=== PATIENT | female | born 1960 | race Caucasian/White ===

== ENCOUNTER → 2020-01-31 08:41 | Outpatient (CLI) | payer OTHER, SELFPAY ==
--- NOTE | 2020-01-31 08:45 | BI_ITS ---
MAMMOGRAPHY - BILATERAL SCREENING REASON FOR EXAM: Female, 59 years old. Routine annual screening examination. PERTINENT HISTORY: Sister with breast cancer. Occasional left nipple itchiness. TECHNIQUE: Digital bilateral breast wendy (3D mammographic acquisition) in the CC and MLO projections. 2-D mediolateral oblique (MLO) and craniocaudad (CC) views of both breasts were obtained. CAD: Full Field Digital Mammography with Computer Added Detection was performed. COMPARISON: Comparison is made with prior outside examination dated November 03, 2011. FINDINGS: Breast Composition: There are scattered areas of fibroglandular density. There are no dominant masses or suspicious calcifications. Stable benign-appearing bilateral axillary lymph nodes. No other significant abnormalities are identified. There has been no significant change since the prior study. BI/SCREEN MAMM (CAD) W/WENDY BILAT IMPRESSION: Stable bilateral screening mammogram. Yearly follow-up mammogram recommended. (A) ASSESSMENT CATEGORY: BIRADS Category 2: Benign. A letter regarding these results will be sent to the patient by the facility within 30 days. Approximately 10% of breast cancers are not detected by mammography. A normal mammogram should not delay biopsy of a clinically suspicious abnormality. [id number] Electronically Signed: Brad Fonseca, at 8:22 EDT , Service support ,
== END ==
PROVIDERS: PCP Family Medicine; Referring Provider Family Medicine; Visit Provider Family Medicine
DX: Z12.31 Encounter for screening mammogram for malignant neoplasm of breast (principal)
CPT/HCPCS: 77063; 77067

== ENCOUNTER → 2020-03-26 17:16 | Outpatient (CLI) | payer OTHER, SELFPAY ==
[2020-03-26 14:54] VITALS: BMI 39.0
[2020-04-03 15:37] LABS: HPV APTIMA, High Risk Negative (Negative)
== END ==
PROVIDERS: PCP Family Medicine; Referring Provider Obstetrics & Gynecology; Visit Provider Obstetrics & Gynecology
DX: Z12.4 Encounter for screening for malignant neoplasm of cervix (principal)
CPT/HCPCS: 87624; 88175; G0145

== ENCOUNTER → 2020-06-04 16:56 | Outpatient (CLI) | payer OTHER, SELFPAY ==
[2020-03-26 14:54] VITALS: BMI 39.0
[2020-06-04 17:30] LABS: Absolute Lymphocyte Count 2.13 X10^3/uL (0.83-4.51); Absolute Neutrophil Count 5.8 X10^3/uL (2.0-7.7); Basophil# 0.04 X10^3/uL; Basophil% 0.5 % (0-1); Eosinophil# 0.08 X10^3/uL; Eosinophils% 0.9 % (0-5); Hematocrit 40.7 % (37-47); Lymphocyte # 2.13 X10^3/ul (4.0); Lymphocyte % 24.7 % (19-41); Mean Corp Hgb Conc 29.5 g/dL (32-36); Mean Corpuscular Hgb 27.7 pg (27.0-32.0); Mean Platelet Vol. 9.1 fl (6.2-12.0); Monocyte# 0.58 X10^3/uL; Monocyte% 6.7 % (0-10); NRBC Flagged by Analyzer 0 % (0-5); Neutrophil # 5.78 X10^3/uL (2.7-7.7); Platelet Count 302 K/mm3 (150-450); RBC Distribution Width CV 12.8 % (11.6-14.6); RBC Distribution Width SD 44.2 fl (35.1-43.9); Red Blood Count 4.33 M/mm3 (4.2-5.4); White Blood Count 8.6 K/mm3 (4.4-11.0)
[2020-06-04 18:03] LABS: AST(SGOT) 14 U/L (15-37); Alanine Aminotransfer ALT/SGPT 23 U/L (13-56); Albumin, Serum 3.7 g/dL (3.2-5.0); Alkaline Phosphatase 78 U/L (45-117); Anion Gap 8 (5-15); BUN 13 mg/dL (7-18); BUN/Creat Ratio 14.1 RATIO (10-20); Calcium,Total 9.4 mg/dL (8.5-10.1); Chloride 107 mmol/L (98-107); Cholesterol 213 mg/dL (200); Creatinine, Serum 0.92 mg/dL (0.55-1.02); EST Glomerular Filtration Rate 66 mL/min (>60); Est Glom Filt Rate - Afr Amer 80 mL/min (>60); Globulin 3.8 g/dL (2.2-4.2); Glucose 126 mg/dL (74-106); High Density Lipoprotein 65 mg/dL; Potassium 4.2 mmol/L (3.5-5.1); Protein, Total 7.5 g/dL (6.4-8.2); Sodium Level 143 mmol/L (136-145); Triglycerides 194 mg/dL; Very Low Density Lipoprotein 39 mg/dL (5-40)
[2020-06-04 18:17] LABS: Vitamin B12 213 pg/mL (211-911)
[2020-06-04 18:26] LABS: Microalbumin:Creatinine Ratio 43.3 mg/g CRE (<30 mg/g CRE)
[2020-06-04 19:04] LABS: Hemoglobin A1c 6.8 % (3.8-5.6)
== END ==
PROVIDERS: PCP Family Medicine; Visit Provider Family Medicine
DX: E11.9 Type 2 diabetes mellitus without complications (principal); R25.2 Cramp and spasm; E55.9 Vitamin D deficiency, unspecified; E83.42 Hypomagnesemia; E78.5 Hyperlipidemia, unspecified
CPT/HCPCS: 36415; 80053; 80061; 82043; 82570; 82607; 83036; 83735; 85025

== ENCOUNTER 2020-11-22 09:18 | Outpatient (RCR) | payer OTHER, SELFPAY ==
[2020-03-26 14:54] VITALS: BMI 39.0
[2020-11-22] MEDS: COVID-19 VACC, MRNA(PFIZER)/PF 30 MCG/0.3 ML SYRINGE IM (13:58)
[2020-12-13] MEDS: COVID-19 VACC, MRNA(PFIZER)/PF 30 MCG/0.3 ML SYRINGE IM (13:40)
== END 2021-02-18 23:59 ==
LOC: IMMUN 09:18
PROVIDERS: PCP Family Medicine; Visit Provider Family Medicine
DX: Z23 Encounter for immunization (principal)
CPT/HCPCS: 0001A; 0002A; 91300

== ENCOUNTER → 2021-06-03 | Outpatient (CLI) | payer OTHER, SELFPAY | END | disposition home or self-care (01) | LOC: LABSPEC 06-04 08:33 | PROVIDERS: PCP Family Medicine; Referring Provider Physician Assistant Surgical; Visit Provider Physician Assistant Surgical | DX: J02.9 Acute pharyngitis, unspecified (principal) | CPT/HCPCS: 87635; U0005; U0003 ==

== ENCOUNTER 2021-06-06 15:58 | Outpatient (CLI) | payer OTHER, SELFPAY ==
[2021-06-06 16:11] VITALS: BP 133/70; PULSE 60; RESP 16; TEMP 36.9; O2SAT 100; BMI 38.7
[2021-06-06] MEDS: 0.9% Saline Lock 10 ML Syringe IV (16:15)
[2021-06-06 16:50] VITALS: BP 111/78; PULSE 61; RESP 16; TEMP 37; O2SAT 97
[2021-06-06 17:50] VITALS: BP 114/70; PULSE 68; RESP 16; TEMP 37.1; O2SAT 97
== END 2021-06-06 17:50 | disposition home or self-care (01) ==
LOC: ICUOUT 15:58 → MS3 15:59
PROVIDERS: PCP Family Medicine; Referring Provider Nurse Practitioner Adult Health; Visit Provider Nurse Practitioner Adult Health
DX: Z23 Encounter for immunization (principal); U07.1 COVID-19
CPT/HCPCS: J7050; M0243; A4216; Q0244

== ENCOUNTER 2021-10-10 11:13 | Outpatient (CLI) | payer OTHER, SELFPAY ==
[2021-10-10 11:41] LABS: Absolute Lymphocyte Count 2.44 X10^3/uL (0.83-4.51); Absolute Neutrophil Count 5.5 X10^3/uL (2.0-7.7); Basophil# 0.04 X10^3/uL; Basophil% 0.4 % (0-1); Eosinophil# 0.18 X10^3/uL; Hematocrit 38.7 % (37-47); Hemoglobin 12.1 g/dL (12.0-15.0); Lymphocyte # 2.44 X10^3/ul (0.83-4.51); Lymphocyte % 27.4 % (19-41); Mean Corp Hgb Conc 31.3 g/dL (32-36); Mean Corpuscular Hgb 28.1 pg (27.0-32.0); Mean Corpuscular Volume 89.8 fL (81-99); Monocyte# 0.67 X10^3/uL; Monocyte% 7.5 % (0-10); NRBC Flagged by Analyzer 0 % (0-5); Neutrophil # 5.53 X10^3/uL (2.7-7.7); Neutrophil % 62.4 % (47-70); Platelet Count 290 K/mm3 (150-450); RBC Distribution Width SD 42.8 fl (35.1-43.9); Red Blood Count 4.31 M/mm3 (4.2-5.4); White Blood Count 8.9 K/mm3 (4.4-11.0)
[2021-10-10 12:17] LABS: Vitamin B12 507 pg/mL (211-911); Vitamin D,25 Hydroxy 47.9 ng/mL
[2021-10-10 12:25] LABS: ALB/GLOB Ratio 0.9 RATIO (0.9-2.4); AST(SGOT) 13 U/L (15-37); Alanine Aminotransfer ALT/SGPT 20 U/L (13-56); Albumin, Serum 3.6 g/dL (3.2-5.0); Alkaline Phosphatase 76 U/L (45-117); Anion Gap 6 (5-15); BUN 14 mg/dL (7-18); BUN/Creat Ratio 14.7 RATIO (10-20); CRP 9.89 mg/L (0.0-3.0); Chloride 105 mmol/L (98-107); Cholesterol 208 mg/dL (200); Creatinine, Serum 0.95 mg/dL (0.55-1.02); EST Glomerular Filtration Rate 64 mL/min (>60); Est Glom Filt Rate - Afr Amer 77 mL/min (>60); Free T3 2.6 pg/mL (2.18-3.98); Globulin 4.1 g/dL (2.2-4.2); Glucose 179 mg/dL (74-106); High Density Lipoprotein 72 mg/dL; Iron 57 ug/dL (50-170); Protein, Total 7.7 g/dL (6.4-8.2); Rheumatoid Factor < 10.0 IU/mL (<15); Sodium Level 139 mmol/L (136-145); T4 Free Direct 1.08 ng/dL (0.76-1.46); Thyroid Stim Hormone (TSH) 1.94 uIU/mL (0.358-3.74); Triglycerides 132 mg/dL; Very Low Density Lipoprotein 26 mg/dL (5-40)
[2021-10-10 12:26] LABS: Erythrocyte Sedimentation Rate 22 mm/hr (0-30)
[2021-10-14 09:40] LABS: CCP IgG Antibodies 29 units (0-19)
== END 2021-10-10 23:59 | disposition short-term general hospital (02) ==
PROVIDERS: PCP Family Medicine; Visit Provider Family Medicine
DX: E03.9 Hypothyroidism, unspecified (principal); E11.8 Type 2 diabetes mellitus with unspecified complications; E78.5 Hyperlipidemia, unspecified; M79.10 Myalgia, unspecified site; M25.50 Pain in unspecified joint; G25.81 Restless legs syndrome; Z51.81 Encounter for therapeutic drug level monitoring
CPT/HCPCS: 36415; 80053; 80061; 82306; 82607; 83540; 84439; 84443; 84481; 85025; 85652; 86140; 86200; 86431

== ENCOUNTER → 2022-01-29 | Outpatient (CLI) | payer OTHER, SELFPAY ==
[2022-01-29 17:36] LABS: Erythrocyte Sedimentation Rate 28 mm/hr (0-30)
[2022-01-29 18:10] LABS: ALB/GLOB Ratio 0.9 RATIO (0.9-2.4); AST(SGOT) 10 U/L (15-37); Alanine Aminotransfer ALT/SGPT 23 U/L (13-56); Albumin, Serum 3.5 g/dL (3.2-5.0); Alkaline Phosphatase 79 U/L (45-117); Anion Gap 7 (5-15); BUN 13 mg/dL (7-18); BUN/Creat Ratio 16.8 RATIO (10-20); Calcium,Total 9.5 mg/dL (8.5-10.1); Chloride 107 mmol/L (98-107); Creatinine, Serum 0.77 mg/dL (0.55-1.02); EST Glomerular Filtration Rate 81 mL/min (>60); Est Glom Filt Rate - Afr Amer 98 mL/min (>60); Globulin 3.7 g/dL (2.2-4.2); Glucose 138 mg/dL (74-106); Potassium 4.1 mmol/L (3.5-5.1); Protein, Total 7.2 g/dL (6.4-8.2); Sodium Level 141 mmol/L (136-145)
[2022-01-31 20:00] LABS: ANTINUCLEAR ANTIBODIES DIRECT Negative (Negative)
[2022-02-10 14:08] LABS: Lyme IgG P18 Ab Absent (.); Lyme IgG P23 Ab Absent (.); Lyme IgG P28 Ab Absent (.); Lyme IgG P30 Ab Absent (.); Lyme IgG P39 Ab Absent (.); Lyme IgG P41 Ab Absent (.); Lyme IgG P45 Ab Absent (.); Lyme IgG P58 Ab Present (.); Lyme IgG P66 Ab Absent (.); Lyme IgG P93 Ab Absent (.); Lyme IgM P23 Ab Absent (.); Lyme IgM P39 Ab Absent (.); Lyme IgM P41 Ab Absent (.)
[2022-02-11 11:25] LABS: CCP IgG Antibodies 27 units (0-19); Lyme IgG WB Interpretation Negative (.); Lyme IgM WB Interpretation Negative (.)
== END | disposition home or self-care (01) ==
LOC: LAB 16:17
PROVIDERS: PCP Family Medicine; Visit Provider Family Medicine
DX: E11.9 Type 2 diabetes mellitus without complications (principal); M25.50 Pain in unspecified joint; Z51.81 Encounter for therapeutic drug level monitoring
CPT/HCPCS: 36415; 80053; 85652; 86038; 86140; 86200; 86225; 86235; 86617

== ENCOUNTER → 2022-09-08 | Outpatient (CLI) | payer OTHER, SELFPAY ==
--- NOTE | 2022-09-08 16:45 | MRI_ITS ---
INDICATION: Cervical dystonia EXAMINATION: MRI - MR Spine Cervical W/O Contrast TECHNIQUE: Multiplanar and multisequence MR images of the cervical spine were performed. IV Contrast Dosage and Agent: None. COMPARISON: None. FINDINGS: VERTEBRAE: Normal vertebral bodies and posterior elements. VERTEBRAL ALIGNMENT: Normal, including the craniocervical junction and cervicothoracic junction. 2 mm C2-3 retrolisthesis. 3 mm C4-5 anterolisthesis. Reversal of the typical cervical lordosis centered on C5. CERVICAL SPINAL CORD: Unremarkable in signal and morphology. C2/C3: Disc bulge and uncovertebral hypertrophy. Moderate left neural foraminal stenosis. No spinal canal stenosis C3/C4: Disc bulge. Mild bilateral neural foraminal stenosis. No spinal canal stenosis C4/C5: Disc bulge with mass effect on the ventral cord. Moderate right and mild left neural foraminal stenosis. C5/C6: Disc bulge and uncovertebral hypertrophy. Ligamentum flavum redundancy. Mild spinal cord compression. Severe bilateral neural foraminal stenosis. C6/C7: Disc bulge. Mild left neural foraminal stenosis. No spinal canal stenosis. C7/T1: Normal disc height and morphology. Normal spinal canal and neuroforamina. NECK SOFT TISSUES: No prevertebral soft tissue swelling. There is no cervical adenopathy. MRI/Spine Cervical (Routine) IMPRESSION: 1. Spinal canal stenosis with mild cord compression at C5-6. No finding of abnormal cord signal. 2. Multilevel neural foraminal stenosis, severe bilaterally at C5-6, moderate on the left at C2-3, and moderate on the right at C4-5. Electronically Signed: Bryan Rausch MD at 19:17 EST ,
--- NOTE | 2022-09-08 17:24 | MRI_ITS ---
INDICATION: Spasmodic torticollis/dystonia, headaches cerebrovascular disease vs. Demyelinating disease EXAMINATION: MRI - MR Brain WO/W Contrast TECHNIQUE: Multiplanar and multisequence MR images of the brain were obtained without and with gadolinium. IV Contrast Dosage and Agent: 20 cc Clariscan COMPARISON: 10/31/2014 FINDINGS: BRAIN PARENCHYMA: Increase in small FLAIR hyperintensities scattered throughout the centrum semiovale. Increased FLAIR hyperintense lesions in the midbrain and ronaldo. No MRI evidence of hemorrhage. No evidence of acute infarct. No intracranial mass or mass effect. There is preservation of the ham/white matter interface. Normal sella turcica, pituitary gland, infundibular stalk, optic chiasm and hypothalamus. Posterior fossa structures are unremarkable. No abnormal enhancement. INTERNAL AUDITORY CANALS: The internal auditory canals are well visualized and patent. No mass identified. CSF SPACES: Appropriate for age. No hydrocephalus. Basal cisterns are patent. VASCULAR SYSTEM: Normal flow voids in the major intracranial circulation. CALVARIUM, SKULL BASE, PARANASAL SINUSES AND MASTOID AIR CELLS: Clear. No expansile changes. ORBITS: Both globes, extraocular muscles, optic nerves and retrobulbar fat appear unremarkable. MRI/Brain W/WO Contrast IMPRESSION: Increased small FLAIR hyperintense lesions in the centrum semiovale and brainstem, which may be related to history of headaches. Demyelination is less likely. No other acute abnormal finding. Electronically Signed: Bryan Rausch MD at 19:06 EST ,
== END | disposition home or self-care (01) ==
LOC: MRI 16:20
PROVIDERS: PCP Family Medicine; Referring Provider Psychiatry & Neurology Neurology; Visit Provider Psychiatry & Neurology Neurology
DX: G24.3 Spasmodic torticollis (principal); G95.20 Unspecified cord compression; M43.12 Spondylolisthesis, cervical region; I67.9 Cerebrovascular disease, unspecified
CPT/HCPCS: 70553; 72141; A9575

== ENCOUNTER → 2022-09-11 | Outpatient (CLI) | payer OTHER, SELFPAY ==
[2022-09-11 10:20] LABS: Hematocrit 36.9 % (37-47); Hemoglobin 11.2 g/dL (12.0-15.0); Mean Corp Hgb Conc 30.4 g/dL (32-36); Mean Corpuscular Hgb 27.1 pg (27.0-32.0); Mean Corpuscular Volume 89.3 fL (81-99); Mean Platelet Vol. 9.3 fl (6.2-12.0); Platelet Count 319 K/mm3 (150-450); RBC Distribution Width CV 13.2 % (11.6-14.6); RBC Distribution Width SD 42.9 fl (35.1-43.9); Red Blood Count 4.13 M/mm3 (4.2-5.4); White Blood Count 9.3 K/mm3 (4.4-11.0)
[2022-09-11 10:48] LABS: Vitamin B12 277 pg/mL (211-911)
[2022-09-11 11:07] LABS: ALB/GLOB Ratio 0.9 RATIO (0.9-2.4); AST(SGOT) 13 U/L (15-37); Alanine Aminotransfer ALT/SGPT 23 U/L (13-56); Albumin, Serum 3.5 g/dL (3.2-5.0); Alkaline Phosphatase 88 U/L (45-117); Anion Gap 6 (5-15); BUN 15 mg/dL (7-18); BUN/Creat Ratio 19.5 RATIO (10-20); Calcium,Total 9.1 mg/dL (8.5-10.1); Chloride 106 mmol/L (98-107); Creatinine, Serum 0.77 mg/dL (0.55-1.02); EST Glomerular Filtration Rate 81 mL/min (>60); Est Glom Filt Rate - Afr Amer 98 mL/min (>60); Globulin 3.7 g/dL (2.2-4.2); Glucose 194 mg/dL (74-106); Potassium 4.3 mmol/L (3.5-5.1); Protein, Total 7.2 g/dL (6.4-8.2); Sodium Level 138 mmol/L (136-145); Thyroid Stim Hormone (TSH) 1.57 uIU/mL (0.358-3.74)
[2022-09-11 11:18] LABS: Erythrocyte Sedimentation Rate 36 mm/hr (0-30)
[2022-09-15 16:32] LABS: ANTINUCLEAR ANTIBODIES DIRECT Negative (Negative)
[2022-09-18 08:09] LABS: Complement C3 171 mg/dL (82-167); Dilute Prothrombin Time (dPT) 35.8 sec (0.0-47.6); Dilute Russell Viper Venom 39.8 sec (0.0-47.0); Free Kappa Light Chains 31.7 mg/L (3.3-19.4); Free Lambda Light Chains 17.9 mg/L (5.7-26.3); Protein C Antigen 123 % (60-150); Protein S, Free 129 % (61-136); Thrombin Time 16.2 sec (0.0-23.0); Vitamin B1, Thiamine 79.9 nmol/L (66.5-200.0); dPT Confirm Ratio 1.15 Ratio (0.00-1.34)
[2022-09-18 18:18] LABS: Anti-Cardiolipin Ab, IgA, Qn < 9 APL U/mL (0-11); Anti-Cardiolipin Ab, IgG, Qn < 9 GPL U/mL (0-14); Anti-Cardiolipin Ab, IgM, Qn < 9 MPL U/mL (0-12); Anti-Thrombin 3 AG, Immunol 95 % (72-124); Antithrombin 3 Function 124 % (75-135); Complement CH50 > 60 U/mL (>41); Interpretation Comment: (.); Protein C, Functional 168 % (73-180); Protein S, Funtional 87 % (63-140); Protein S, Total 118 % (60-150)
== END | disposition home or self-care (01) ==
PROVIDERS: PCP Family Medicine; Referring Provider Psychiatry & Neurology Neurology; Visit Provider Psychiatry & Neurology Neurology
DX: I67.9 Cerebrovascular disease, unspecified (principal); G62.9 Polyneuropathy, unspecified
CPT/HCPCS: 36415; 80053; 81240; 81241; 82607; 82746; 83883; 84425; 84443; 85027; 85300; 85301; 85302; 85303; 85305; 85306; 85652; 86038; 86147; 86160; 86162; 86225; 86235

== ENCOUNTER → 2022-11-30 | Outpatient (CLI) | payer OTHER, SELFPAY ==
[2022-12-03 13:08] LABS: Albumin 3.7 g/dL (2.9-4.4); Alpha-1-Globulins 0.3 g/dL (0.0-0.4); Alpha-2-Globulins 0.9 g/dL (0.4-1.0); Complement C3 186 mg/dL (82-167); Gamma Globulin 0.9 g/dL (0.4-1.8); Immunoglobulin A 331 mg/dL (87-352); Immunoglobulin G 940 mg/dL (586-1602); Immunoglobulin M 45 mg/dL (26-217)
== END | disposition home or self-care (01) ==
LOC: MTLAB 12:41
PROVIDERS: PCP Family Medicine; Referring Provider Psychiatry & Neurology Neurology; Visit Provider Psychiatry & Neurology Neurology
DX: I67.9 Cerebrovascular disease, unspecified (principal); G62.9 Polyneuropathy, unspecified
CPT/HCPCS: 36415; 82784; 84165; 86160; 86334; 86335

== ENCOUNTER 2022-12-16 10:30 | Outpatient (RCR) | payer OTHER, SELFPAY ==
--- NOTE | 2022-12-10 14:36 | HP.PTEVAL_ITS ---
Patient's Visit Information ASHLEY MANCUSO is a 62 year old F referred to Physical Therapy by Dr. Crow Colvin MD with a diagnosis of Dystonia and Balance. Date of Evaluation: 12/10/22 Physical Therapist: Annia Catalan DPT - Visit Plan Frequency: 1x/Week Duration: 4 Weeks Plan: Balance, Dystonia of her Cervical Spine. HEP Given IE: bring head to midline, postural correction and SLS - Subjective Patient reports that the neurologist wants her to have a balance assessment and an assessment for her neck. She was diagnosed in 2011 it started in 2010- Dystonia and has progressively gotten worse- she was told its sitting at a 45 degree angle. She feels that its getting better- she takes Baclofen 3x a day. She has limited mobility to the right. Worst: 4/10 Agg: over heating (anxiety issue), stress (husbands driving). Weather related and sensory related. Eases: laying down or taking Tylenol. Best: 0/10 she doesn't think about it. Pain is located in the right side in the suboccipitals and the right side. Radiates to the top of the shoulder. Has always had numbness in the right hand- comes and goes dependent on position- she also has some numbness on the right side of her face and chin. No GUTIERREZ, blurred vision. Does report dizziness with change in position- not spinning. Right hand dominate. As her neck has gone more to the side she feels her balance has diminished. She lists to the left. Dr. Colvin had her do balance stuff and she didnt do very well so he sent her to see PT. She has not had any falls. No cane or walker. She is more sedentary- but she is up and about a lot due to restless leg. She feels the most comfortable with her right arm elevated. She has had recent x-rays and MRI's. She has three bulging discs. 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 Sleep: no issues- starts on her side and ends up on her back. - Objective Posture: FH, patient has dystonia with SB to the right- RS- can correct to good scapular retraction and face forwards for approx 2 sec with chin level then reverts back to previous posture. ROM: Cervical: Flexion and Extension: WNL, Rotation Left: WNL, Rot Right: 20 degrees from neutral, SB to the right: WNL, SB to the Left neutral, Shoulder/Elbow/hand/: WNL. Strength: Scap: poor, Core: poor, Shoulder: 4/5, Elbow: 4+/5, Core: poor. Balance: see FGA SLS: Left: 13 Right 11 sec Tandem Left 8 sec Right 10 sec - Balance/Special Test Scores Functional Gait Assessment Score: 19 % Disability: 36.6700 Oswestry Neck Score: 18 - Goals Goal 1:: Patient will be I with HEP and progression Goal Time Frame: 4-6 Weeks Goal 2:: Patient will improve her FGA by 5 points Goal Time Frame: 4-6 Weeks Goal 3:: Patient will report 80% improvement Goal Time Frame: 4-6 Weeks Goal 4:: Patient will maintain proper posture t/o tx session to demo increased core s/s Goal Time Frame: 4-6 Weeks - Rehabilitation Potential Physical Therapy Diagnosis: Patient presents with hypomobility- she has decreased scapular, core strength/stabilization, cervical ROM, proprioception and muscular endurance leading to poor posture, decreased balance and difficulty with ADL's. - Anticipated Interventions Patient/Client Instruction: Educate patient on: Benefits of Fitness Program Therapeutic Exercise to Include: Strength training, Endurance training, Balance training, Coordination, Agility training, Body mechanics, Postural training, Flexibilty training, Gait and locomotor training, Neuromotor development, Passive ROM, Active ROM, Dynamic Lumbar Stabilization, Scapular Strength/Stabilization Manual Therapy Techniques to Include: Functional dry needling, Soft tissue mobilization Functional electric stimulation: Yes TENS: Yes Other electric stimulation: Yes Cryotherapy (ice pack, ice massage): Yes Thermo therapy (hot pack): Yes Ultrasound (thermal/non thermal): Yes Thank you for the opportunity to evaluate your patient. For Medicare and Medicare HMO plans, please review the plan of care and approve it. It will need to be FAXED BACK to us at [phone] for Medicare purposes. For Medicare only, by signing this I certify the plan of care. Please let me know if there are questions or concerns regarding this plan of care. Physician Signature: Date:
--- NOTE | 2023-03-29 13:11 | HP.PT.NRP ---
Patient Information Patient Information: ASHLEY MANCUSO was seen in my office for initial evaluation on 12/10/22. The following Plan of Care was established for this patient: POC Established Initial Frequency: 1x/Week Initial Duration: 4 Weeks Anticipated Interventions Patient/Client Instruction: Educate patient on: Benefits of Fitness Program Therapeutic Exercise to Include: Strength training, Endurance training, Balance training, Coordination, Agility training, Body mechanics, Postural training, Flexibilty training, Gait and locomotor training, Neuromotor development, Passive ROM, Active ROM, Dynamic Lumbar Stabilization and Scapular Strength/Stabilization Manual Therapy Techniques to Include: Functional dry needling and Soft tissue mobilization Functional electric stimulation: Yes TENS: Yes Other electric stimulation: Yes Cryotherapy (ice pack, ice massage): Yes Thermo therapy (hot pack): Yes Ultrasound (thermal/non thermal): Yes Last Seen Last Seen: This patient was last seen in our office . Pertinent comments regarding their Physical therapy will appear below: Patient has not attended PT in over 8 weeks- appropriate to be d/c and return to MD for further evaluation PRN. At this point I will be discontinuing this patient from physical therapy. I would be happy to see this patient again in the future if found appropriate by the physician. Thank you! Annia Catalan, SILVANAT Balance/Gait/Functional tests Balance/Special Test Scores Functional Gait Assessment Score: 19 % Disability: 36.6700 Oswestry Neck Score: 18
== END 2022-12-16 19:00 | disposition home or self-care (01) ==
LOC: PT 10:30
PROVIDERS: PCP Family Medicine; Referring Provider Psychiatry & Neurology Neurology; Visit Provider Psychiatry & Neurology Neurology
DX: G62.9 Polyneuropathy, unspecified (principal); I67.9 Cerebrovascular disease, unspecified; M48.02 Spinal stenosis, cervical region; G24.3 Spasmodic torticollis; M54.2 Cervicalgia
CPT/HCPCS: 97110; 97162

== ENCOUNTER → 2023-01-27 | Outpatient (CLI) | payer OTHER, SELFPAY ==
--- NOTE | 2023-01-27 14:21 | NEURO_ITS ---
NCS and/or EMG Patient Report Ordering Doctor: Crow Colvin DATE OF SERVICE: 01/27/23 Ana María presents for electrodiagnostic testing of the lower limbs. She reports frequent cramping in the legs. She does report her feet will occasionally fall asleep. Electrodiagnostic findings: Right peroneal motor nerve demonstrates normal distal latency, amplitude and conduction velocity. Left peroneal motor nerve demonstrates normal distal latency, amplitude and conduction velocity. Tibial motor response within normal limits on the right side. Left tibial motor conduction velocity is mildly delayed. Normal peroneal and tibial F-waves. H- reflex prolonged bilaterally. Normal sural responses bilaterally. Absent right superficial peroneal response. Mildly prolonged left superficial peroneal latency. On needle EMG, all muscles tested in the lower limbs showed no evidence of denervation with normal motor unit action potentials. No denervation noted in lumbar paraspinals. Electrodiagnostic impression: This an abnormal study in the lower limbs 1. Electrodiagnostic findings suggestive of a mild peripheral polyneuropathy, with sensory and motor involvement. There is no evidence of axonal loss. 2. No electrodiagnostic evidence is noted for lumbosacral radiculopathy. Multi Select Codes Neurology Neurology Interp Codes: 81316-34 Musc test done w/n test comp (interp) (2) and 58092-30 Nrv cndj test 9-10 studies (interp)
== END | disposition home or self-care (01) ==
PROVIDERS: PCP Family Medicine; Referring Provider Psychiatry & Neurology Neurology; Visit Provider Psychiatry & Neurology Neurology
DX: G62.9 Polyneuropathy, unspecified (principal)
CPT/HCPCS: 95886; 95911

== ENCOUNTER 2023-07-23 08:57 | Inpatient (IN) | payer OTHER, SELFPAY ==
[2023-07-23] VITALS (8 sets, daily range): BP systolic 94–134; BP diastolic 50–78; PULSE 65–103; RESP 13–20; TEMP 36.7–39.5; O2SAT 90–98; BMI 40.6; BMI 40.8
--- NOTE | 2023-07-23 09:16 | EKG12_ITS ---
Test Reason : NV, WEAKNESS Blood Pressure : / mmHG Vent. Rate : 101 BPM Atrial Rate : 101 BPM P-R Int : 174 ms QRS Dur : 080 ms QT Int : 350 ms P-R-T Axes : 027 011 025 degrees QTc Int : 453 ms Sinus tachycardia Nonspecific ST abnormality Abnormal ECG Confirmed by PAOLA COLON, MARCELLUS ([id number]), editorial writer EMILY CORBIN ([id number]) on 07/26/2023 8:26:11 AM Referred By: Confirmed By:HANS GUEVARA MD
[2023-07-23] MEDS: 0.9% Normal Saline (1000mL) 1,000 ML 999 ML IV (09:28)
--- NOTE | 2023-07-23 09:43 | EX.ED.DYSGE1 ---
HPI History of Present Illness Chief Complaint: Fever Detail of Chief Complaint: Fever and chills that started 2 days ago. Informant: patient, spouse/S.O. and friend Onset/Context/Timing Onset: Days Context: Sudden Onset Timing: Intermittent Quality: Shaking chills with rigors and subjective fever Location: Generalized Current Severity: Mild Maximum Severity: Moderate Worsened by: Nothing Relieved by: Nothing Associated Symptoms Associated Symptoms: Slight cough that is nonproductive Narrative Narrative: Patient is a 62-year-old woman with history of cervical dystonia, cerebrovascular disease, abnormal mobility and gait, vitamin B12 deficiency and restless leg syndrome who presents with subjective fever and shaking chills to the point of her teeth chattering. This has occurred on more than one occasion. She states she feels terrible. She does complain of headache. Denies photophobia or neck stiffness. She denies ringing in ears, decreased urinary discharge from her ears. She denies rhinorrhea, congestion or postnasal drainage. She denies sore throat. She denies chest discomfort. She denies vomiting or diarrhea. She denies dysuria, frequency, urgency or hematuria. She does endorse decreased urine output. She does endorse orthostatic lightheadedness. She has not noted a rash. Prior similar symptoms: No Recent Illness/Hospitalization: No [facility] Medical History Diabetes Hives Osteoarthritis of right knee Right knee pain Seasonal allergies Spasmodic torticollis Vitamin B12 nutritional deficiency Home Medications citalopram 40 mg tablet (Celexa) 40 mg PO DAILY 03/26/20 [History Last Taken Unknown] metformin 750 mg tablet,extended release 24 hr 750 mg PO DAILY 03/26/20 [History Last Taken Unknown] montelukast 10 mg tablet (Singulair) 10 mg PO DAILY 03/26/20 [History Last Taken Unknown] levocetirizine 5 mg tablet (Xyzal) 5 mg PO DAILY 06/06/21 [History Last Taken Unknown] magnesium oxide 400 mg PO BID 07/27/22 [History Last Taken Unknown] omega-3 417 mg-dha 120 mg-epa-276 mg-fish oil 600 mg-tumeric capsule cap PO 12/15/22 [History Last Taken Unknown] baclofen 20 mg tablet 20 mg PO TID #90 tabs 04/01/23 [Rx Last Taken Unknown] potassium chloride 10 mEq tablet,extended release 10 meq PO QHS #30 tabs 04/01/23 [Rx Last Taken Unknown] ropinirole 1 mg tablet 1 mg PO .COMPLEX #75 tabs 06/04/23 [Rx Last Taken Unknown] glimepiride 2 mg tablet (Amaryl) 4 mg PO DAILY 07/19/23 [History Last Taken Unknown] Allergy/AdvReac Type Severity Reaction Status Date / Time cat dander Allergy Hives Verified 07/23/23 08:57 dog dander Allergy Hives Verified 07/23/23 08:57 Environmental Allergies: Allergy Hives Verified 07/23/23 08:57 Uncoded [dust] latex AdvReac Intermediate Itching Verified 07/23/23 08:57 ethinyl estradiol AdvReac hives Verified 07/23/23 08:57 [From Seasonale (91)] levonorgestrel AdvReac hives Verified 07/23/23 08:57 [From Seasonale (91)] Family History Unknown No problems noted. Father Diabetes Respiratory disease Mother Diabetes Sister Diabetes Brother Diabetes Surgical History H/O ovarian cystectomy History of delivery History of right oophorectomy Hx of cholecystectomy Social History Smoking Status: Never smoker second hand exposure: No alcohol intake: current details: social substance use type: does not use caffeine: Yes Type: coffee Number of servings: 3 what type of physical activity do you participate in: none neal/caodaism: Yazidism seatbelt use: always do you feel safe at home: Yes additional social history: Amado- HR ROS ROS ED Constitutional Constitutional ED: Reports chills, fever(s) and subjective; Denies sweats or weight loss Eyes Eyes: Denies blurry vision, change in vision or diplopia ENT ENT ED: Denies ear pain, rhinorrhea or sore throat Cardiovascular Cardiovascular: Denies chest pain, orthopnea, palpitations, paroxysmal nocturnal dyspnea or racing heartbeat Respiratory/Chest Respiratory/Chest: Reports cough and dyspnea; Denies orthopnea, paroxysmal nocturnal dyspnea or sputum Gastrointestinal Gastrointestinal: Reports nausea; Denies abdominal pain, diarrhea, melena or vomiting Genitourinary Genitourinary ED: Denies dysuria, hematuria or urinary frequency Musculoskeletal Musculoskeletal: Reports arthralgias and myalgias; Denies back pain or neck pain Integumentary Denies rash Neurologic Neurologic: Reports headache(s); Denies paresthesias or weakness Psychiatric Psychiatric: Reports anxiety and depression Endocrine Endocrinology: Denies cold intolerance or heat intolerance Hematologic/Lymphatic Hematologic/Lymphatic: Reports systems reviewed and no addt'l complaints, except as documented EXAM Physical Exam Const Vital Signs: 07/23/23 09:02 07/23/23 09:04 07/23/23 09:26 Temperature 103.1 F H Temperature Source Oral Pulse Rate 103 H Respiratory Rate 20 H Respiratory Effort Normal Non-Labored Respiratory Pattern Normal Blood Pressure 134/78 H Blood Pressure Mean 96 Pulse Ox 90 Oxygen Delivery Method Room Air Room Air 07/23/23 11:29 Temperature 101 F H Temperature Source Core Pulse Rate 93 Respiratory Rate 13 Respiratory Effort Respiratory Pattern Blood Pressure 105/58 L Blood Pressure Mean 73 Pulse Ox 92 Oxygen Delivery Method Room Air Positive well nourished, well developed and obese Constitutional Narrative: Patient appears ill. General Appearance ED: well developed and pallor; Negative for cyanotic, diaphoretic or NAD Nutritional Appearance: obese HEENT Reports dry mucous membranes HEENT Narrative: Head is atraumatic and normocephalic. Ears are normal. Nares are patent. Posterior pharynx out erythema or exudate. There is no tenderness over the frontal, ethmoid or maxillary sinuses. Mouth ED: Yes dry mucous membranes Mouth: dry mucous membranes Eyes PERRL and EOMs intact bilaterally General Eye ED: Yes pale conjunctiva; Negative for scleral icterus Neck no lymphadenopathy, supple and no JVD Chest Wall inspection of chest normal and palpation of chest normal Resp normal respiratory effort and No clear to auscultation bilaterally Auscultation: rales bilateral base Cardio regular rhythm, S1 normal heart sound, S2 normal heart sound and no murmurs Rate: tachycardic GI normal to inspection, nondistended, normoactive bowel sounds, non-tender, non-distended and no masses; Negative for hepatosplenomegaly Back/Spine no CVA tenderness Thoracic Spine / Upper Back: Negative for thoracic spinal tenderness Lumbar Spine / Lower Back: Negative for lumbar spinal tenderness Extremity normal to inspection General Extremety ED: Negative for edema or tenderness General Extremity: Negative for edema Neuro oriented x3, CN's II-XII intact bilaterally and no sensory deficits noted Neuro Narrative: Patient is awake but not alert. Psych mental status grossly normal Skin no rashes or lesions noted, no wounds and No skin turgor normal General Skin Exam: pallor; Negative for elasticity normal or jaundice Sepsis Attestation Sepsis Alert: Yes Sepsis Attestation: Agree w/Sepsis Date exam was performed: 07/23/23 Time exam was performed: :26 Possible Source of Sepsis: Other (Source is not definitive. May represent respiratory, urologic based on appearance of urine and with elevated liver enzymes may represent gallbladder. For this reason we will administer Zosyn.) MDM MDM MDM Narrative Medical decision making narrative: With patient being tachycardic, tachypneic complaining of rigors and temperature 103.1 sepsis order set was initiated after seeing patient. This could represent a viral illness. Will assess for influenza and COVID. This also could represent bacterial infection. Since her pulse ox is only 90% she is a non-smoker primary source is respiratory. Since clinically she appears dehydrated IV fluids were ordered. Differential diagnosis is systemic viral illness versus systemic bacterial illness and specifically pneumonia. Need to assess for endorgan dysfunction. Source of infection is not obvious. There is concern because of bilateral rales with a pulse ox 90% a non-smoker that she had may have pneumonia this not visualized on chest x-ray. Since she has elevated liver enzymes and bilirubin she may have choledocholithiasis and she is status postcholecystectomy. Urine is dark and is not clear. This raises concern for urologic infection. For this reason Zosyn was ordered to cover potential respiratory, and GI pathology/organisms. Nurse informed me also that she has made minimal urine. Will order an additional liter of normal saline. History & Record Review Additional record(s) reviewed:: Prior outpatient record (Recent outpatient note by Umberto Aparicio for diabetes) and Prior labs Lab Data Attestation: I reviewed the patient's lab results. Lab results narrative: Patient is neutropenic. There is a slight shift. There is mild anemia with a hemoglobin 11.4. Comprehensive metabolic panel reveals elevated creatinine of 1.05 with estimated GFR 56. Total bili is elevated 2.0. AST and ALT are 186 respectively. Alkaline phosphatase elevated to 39. Influenza and and COVID antigens were negative. Urinalysis reveals back. However there is no pyuria. Macro was positive for occult blood and leukoesterase and negative for nitrites. Specific gravity is elevated to 1.025. There is evidence of ketones and consistent with patient's poor p.o. intake. In light of the bacteria urine culture was sent. Labs: Laboratory Results - last 24 hr 07/23/23 07/23/23 09:07 10:19 WBC 4.0 L RBC 4.31 Hgb 11.4 L Hct 38.4 MCV 89.1 MCH 26.5 L MCHC 29.7 L RDW Std Deviation 48.8 H RDW Coeff of Krystin 14.8 H Plt Count 166 MPV 9.6 Immature Gran % (Auto) 0.300 Neut % (Auto) 90.6 H Lymph % (Auto) 7.3 L [place] % (Auto) 1.0 Eos % (Auto) 0.3 Baso % (Auto) 0.5 Absolute Neuts (auto) 3.6 Absolute Lymphs (auto) 0.29 L Nucleated RBC % 0 Differential Comment SCANNED PT 16.1 H INR 1.3 APTT 35.7 Sodium 139 Potassium 4.0 Chloride 103 Carbon Dioxide 23.0 Anion Gap 13 BUN 17 Creatinine 1.05 H Estim Creat Clear Calc 52.01 Est GFR (MDRD) Af Amer 68 Est GFR (MDRD) Non-Af 56 L BUN/Creatinine Ratio 16.2 Glucose 181 H Lactic Acid 2.9 H* Calcium 9.1 Total Bilirubin 2.00 H AST 100 H ALT 86 H Alkaline Phosphatase 239 H Total Protein 7.2 Albumin 2.8 L Globulin 4.4 H Albumin/Globulin Ratio 0.6 L Urine Color Yellow Urine Clarity Sl. Cloudy Urine pH 5.0 Ur Specific Lopez 1.025 Urine Protein 100 H Urine Glucose (UA) Normal Urine Ketones 50 H Urine Occult Blood 25 H Urine Nitrite Negative Urine Bilirubin 3 H Urine Urobilinogen 8 H Ur Leukocyte Esterase 25 H Urine RBC 0-5 SEEN Urine WBC 0-5 SEEN Ur Squamous Epith Cells 0-5 SEEN Urine Bacteria 2+ Urine Mucus 0 SEEN Radiography Chest X-Ray - ED: 1 View and Read by ED Physician (Single view portable chest x-ray is slightly rotated. Cardiac silhouette and size normal. There is no obvious infiltrate. There is no effusion. Perihilar regions unremarkable. Osseous structures are unremarkable. This was interpreted by me at 1006.) Diagnostic Testing: Clinical Impression(s) from Imaging Studies Chest X-Ray 07/23/23 09:50 IMPRESSION: Normal x-ray examination of the chest. Electronically Signed: Brad Fonseca MD at 10:42 EST , Gallbladder Ultrasound 07/23/23 10:25 IMPRESSION: Hepatomegaly and diffuse fatty infiltration of the liver. Status post cholecystectomy. Electronically Signed: Brad Fonseca MD at 12:04 EST , EKG Initial EKG: Interpretation: Sinus Tachycardia (Rate is 101. There is nonsevere ST-T wave changes which in all likelihood is artifact. MO interval is under 74 ms. QRS duration 80 ms. QT duration 150 ms. [place] is normal) Management Discussion w/another healthcare provider: Hospitalist (Case discussed with hospitalist. He asked if he would like me to start azithromycin. 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 (Discussion with patient and spouse.), Discussing w/Consultants (Discussion with hospitalist) and Arranging Admission or Transfer Discharge Plan Triage Chief Complaint: Fever ED Provider: Marquez Baron Dx/Rx/DC Orders Clinical Impression: SIRS due to infectious process with organ dysfunction, BMI over 35, Cervical dystonia, Acidosis, lactic, Neutropenia associated with infection, Steatohepatitis, Bacteria in urine, Hypoxia, Sinus tachycardia seen on bus driver/monitor Prescriptions: No Action metformin 750 mg tablet extended release 24 hr 750 mg PO DAILY citalopram [Celexa] 40 mg tablet 40 mg PO DAILY montelukast [Singulair] 10 mg tablet 10 mg PO DAILY glimepiride [Amaryl] 2 mg tablet 4 mg PO DAILY levocetirizine [Xyzal] 5 mg tablet 5 mg PO DAILY magnesium oxide 400 mg magnesium tablet 400 mg PO BID potassium chloride 10 mEq tablet extended release 10 meq PO QHS Qty: 30 6RF baclofen 20 mg tablet 20 mg PO TID Qty: 90 5RF ropinirole 1 mg tablet 1 mg PO .COMPLEX Qty: 75 6RF Rx Instructions: Take 1/2 tablet orally at noon daily as needed, 1 tablet at 6 PM daily and 1 tablet at 11 PM daily. omega 3-stv-fni-fish-turmeric 417 mg-120 mg- 276 mg-600 mg capsule PO Primary Care Provider: Lori Santana Referrals: Lori Santana DO [Primary Care Provider] - Disposition Disposition: Acute Care Hospital [facility]
--- NOTE | 2023-07-23 09:50 | RAD_ITS ---
STUDY: X-RAY CHEST REASON FOR EXAM: Female, 62 years old. Fever, rales at the base TECHNIQUE: Single AP portable view of the chest. COMPARISON: None. FINDINGS: EKG electrodes are seen. Mild elevation of the right hemidiaphragm. There is no demonstrated pleural abnormality. Normal size heart. Normal mediastinum and el. Normal visualized pulmonary arteries. Normal visualized aortic arch and descending thoracic aorta. There are degenerative changes of the visualized thoracic spine. Normal visualized ribs, clavicles, and shoulders. There is no demonstrated abnormality of the visualized soft tissue structures of the upper abdomen. RAD/Chest 1 View (Portable) IMPRESSION: Normal x-ray examination of the chest. Electronically Signed: Brad Fonseca MD at 10:42 EST ,
[2023-07-23 09:51] LABS: Absolute Lymphocyte Count 0.29 X10^3/uL (0.83-4.51); Absolute Neutrophil Count 3.6 X10^3/uL (2.0-7.7); Basophil# 0.02 X10^3/uL; Basophil% 0.5 % (0-1); Eosinophil# 0.01 X10^3/uL; Eosinophils% 0.3 % (0-5); Hematocrit 38.4 % (37-47); Hemoglobin 11.4 g/dL (12.0-15.0); Lymphocyte # 0.29 X10^3/ul (0.83-4.51); Lymphocyte % 7.3 % (19-41); Mean Corp Hgb Conc 29.7 g/dL (32-36); Mean Corpuscular Hgb 26.5 pg (27.0-32.0); Mean Corpuscular Volume 89.1 fL (81-99); Mean Platelet Vol. 9.6 fl (6.2-12.0); Monocyte# 0.04 X10^3/uL; NRBC Flagged by Analyzer 0 % (0-5); Neutrophil # 3.63 X10^3/uL (2.7-7.7); Neutrophil % 90.6 % (47-70); POSITIVE DIFFERENTIAL YES; POSITIVE MORPHOLOGY YES; Platelet Count 166 K/mm3 (150-450); RBC Distribution Width CV 14.8 % (11.6-14.6); RBC Distribution Width SD 48.8 fl (35.1-43.9); Red Blood Count 4.31 M/mm3 (4.2-5.4)
[2023-07-23 10:00] LABS: Differential Indicated SCAN CRITERIA MET
[2023-07-23 10:03] LABS: ALB/GLOB Ratio 0.6 RATIO (0.9-2.4); AST(SGOT) 100 U/L (15-37); Alanine Aminotransfer ALT/SGPT 86 U/L (13-56); Albumin, Serum 2.8 g/dL (3.2-5.0); Alkaline Phosphatase 239 U/L (45-117); Anion Gap 13 (5-15); BUN 17 mg/dL (7-18); BUN/Creat Ratio 16.2 RATIO (10-20); Calcium,Total 9.1 mg/dL (8.5-10.1); Chloride 103 mmol/L (98-107); Creatinine, Serum 1.05 mg/dL (0.55-1.02); EST Glomerular Filtration Rate 56 mL/min (>60); Est Glom Filt Rate - Afr Amer 68 mL/min (>60); Estimated Creatinine Clearance 52.01 ml/min; Globulin 4.4 g/dL (2.2-4.2); Glucose 181 mg/dL (74-106); Protein, Total 7.2 g/dL (6.4-8.2); Sodium Level 139 mmol/L (136-145)
[2023-07-23 10:09] LABS: International Normalized Ratio 1.3; Prothrombin Time (Protime)PT. 16.1 SECONDS (11.7-14.9)
[2023-07-23 10:10] LABS: Partial Thromboplast Time 35.7 Seconds (24.1-36.2)
[2023-07-23 10:21] LABS: Differential Comment SCANNED
[2023-07-23 10:23] LABS: Lactic Acid 2.9 mmol/L (0.4-1.9)
--- NOTE | 2023-07-23 10:25 | US_ITS ---
STUDY: ABDOMINAL ULTRASOUND - RIGHT UPPER QUADRANT REASON FOR VISIT: Female, 62 years old ABDOMEN PAIN TECHNIQUE: Ultrasound evaluation of the right upper quadrant was performed with real-time and static ham-scale imaging. TECHNICAL QUALITY: Adequate. COMPARISON: None. FINDINGS: Liver: The liver is enlarged and measures 22 cm. There is increased echogenicity consistent with fatty infiltration. The bile ducts are within normal limits. There is hepatic color flow. The direction of portal flow is hepatopetal. There is no demonstrated mass lesion. Gallbladder: The patient is status post cholecystectomy. Common Bile Duct (C.B.D.): The common bile duct measures 5.3 mm. Pancreas: Normal size of the head of the pancreas. Body and tail portions obscured by overlying bowel gas. There is normal echogenicity of the pancreas. There is no demonstrated pancreatic mass or cyst. Right Kidney: Normal size of the right kidney. The right kidney measures 12.7 cm x 5.7 cm x 5 cm. Normal renal cortex. The right cortex measures 1.4 cm. There is no demonstrated renal mass or cyst. There is no right hydronephrosis. US/Gallbladder IMPRESSION: Hepatomegaly and diffuse fatty infiltration of the liver. Status post cholecystectomy. Electronically Signed: Brad Fonseca MD at 12:04 EST ,
[2023-07-23 10:32] LABS: Mucous, Urine 0 SEEN /hpf (<or=2+)
[2023-07-23 10:43] LABS: Color, Urine Yellow (Yellow); Glucose, Dipstick Normal (Normal); Ketone-Dipstick 50 mg/dl (Negative); Leukocyte Esterase-Dipstick 25 /ul (Negative); Nitrite-Dipstick Negative (Negative); Occult Blood-Urine 25 /ul (Negative); Protein-Dipstick 100 mg/dl (Negative); Specific Gravity, Urine 1.025 (1.002-1.030); Urine Clarity Sl. Cloudy (Clear); Urine Urobilinogen 8 mg/dl (Normal)
[2023-07-23] MEDS: 0.9% Normal Saline (1000mL) 1,000 ML 1000 ML IV (10:50)
[2023-07-23 10:55] LABS: Urine Bilirubin Dipstick 3 mg/dL (Negative)
[2023-07-23 11:00] LABS: Bacteria 2+ /hpf (None Seen); Red Blood Cells-Urine 0-5 SEEN /hpf (0-5); Squamous Epithelial Cells - UA 0-5 SEEN /hpf (5-10); White Blood Cells 0-5 SEEN /hpf (0-5)
--- NOTE | 2023-07-23 11:15 | ED.RN ---
DELAY IN ANTIBIOTIC D/T PT OUT OF ROOM IN ULTRASOUND.
[2023-07-23] MEDS: Piperacil/Tazobactam 4.5 GM in 0.9% Normal Saline (100mL MB+) 100 ML IV (11:23)
[2023-07-23] MEDS: Acetaminophen 325 MG Tablet 650 MG PO ×2 (12:04→18:47)
[2023-07-23 13:42] LABS: Reflex Lactate? Y
[2023-07-23 14:29] LABS: Lactic Acid 1.3 mmol/L (0.4-1.9)
[2023-07-23] MEDS: Baclofen 10 MG Tablet 20 MG PO ×2 (16:07→21:25)
[2023-07-23] MEDS: Pramipexole Di-HCl 0.5 MG Tablet PO ×2 (16:07→21:27)
--- NOTE | 2023-07-23 18:16 | PCM.HP.STD ---
HPI - General General Date of Admission: 07/23/23 Date of Service: 07/23/23 Chief Complaint: Nausea, vomiting, fever, chills HPI Narrative ASHLEY MANCUSO, is a 62 F who presents to the emergency room at [facility] for evaluation of chills, fever, nausea and vomiting x48 hours. Patient denies any dysuria, she denies any cough. Evaluation in the emergency room included a CBC which showed a low white blood cell count 4, hemoglobin was 11.4, chemistry profile was remarkable for creatinine of 1.05, glucose was 181, bilirubin was 2, AST was 100, ALT was 86, alkaline phosphatase was 239. Urinalysis showed 25 leukocyte Estrace, +2 bacteria was seen, there were 0-5 WBCs and RBCs noted. Patient underwent an ultrasound of the gallbladder which showed hepatomegaly and diffuse fatty liver infiltration, no gallbladder was seen. Patient's chest x-ray was unremarkable. Blood cultures were drawn, patient was given IV antibiotics and IV fluids, she will be admitted to PCU for acute cystitis with possible sepsis, the site of the actual infection is unknown at this time but felt to be urinary tract infection, CMP will be repeated tomorrow as will a CBC. FOR[facility], LATER [facility] Medical History Diabetes Hives Osteoarthritis of right knee Right knee pain Seasonal allergies Spasmodic torticollis Vitamin B12 nutritional deficiency Home Medications citalopram 40 mg tablet (Celexa) 40 mg PO DAILY 03/26/20 [History Last Taken Unknown] metformin 750 mg tablet,extended release 24 hr 750 mg PO DAILY 03/26/20 [History Last Taken Unknown] montelukast 10 mg tablet (Singulair) 10 mg PO DAILY 03/26/20 [History Last Taken Unknown] levocetirizine 5 mg tablet (Xyzal) 5 mg PO DAILY 06/06/21 [History Last Taken Unknown] magnesium oxide 400 mg PO QHS 07/27/22 [History Last Taken Unknown] omega-3 417 mg-dha 120 mg-epa-276 mg-fish oil 600 mg-tumeric capsule 1 cap PO DAILY 12/15/22 [History Last Taken Unknown] baclofen 20 mg tablet 20 mg PO TID #90 tabs 04/01/23 [Rx Last Taken Unknown] potassium chloride 10 mEq tablet,extended release 10 meq PO QHS #30 tabs 04/01/23 [Rx Last Taken Unknown] ropinirole 1 mg tablet 1 mg PO .COMPLEX #75 tabs 06/04/23 [Rx Last Taken Unknown] glimepiride 2 mg tablet (Amaryl) 4 mg PO DAILY 07/19/23 [History Last Taken Unknown] Allergy/AdvReac Type Severity Reaction Status Date / Time cat dander Allergy Hives Verified 07/23/23 08:57 dog dander Allergy Hives Verified 07/23/23 08:57 Environmental Allergies: Allergy Hives Verified 07/23/23 08:57 Uncoded [dust] latex AdvReac Intermediate Itching Verified 07/23/23 08:57 ethinyl estradiol AdvReac hives Verified 07/23/23 08:57 [From Seasonale ()] levonorgestrel AdvReac hives Verified 07/23/23 08:57 [From Seasonale ()] Family History Unknown No problems noted. Father Diabetes Respiratory disease Mother Diabetes Sister Diabetes Brother Diabetes Surgical History H/O ovarian cystectomy History of delivery History of right oophorectomy Hx of cholecystectomy Social History household members: spouse Smoking Status: Never smoker second hand exposure: No alcohol intake: current details: social substance use type: does not use caffeine: Yes Type: coffee Number of servings: 3 what type of physical activity do you participate in: none neal/voodoo: Hindu seatbelt use: always do you feel safe at home: Yes additional social history: Amado- HR ROS Constitutional Constitutional: Reports chills, fever(s), malaise and weakness; Denies anorexia, change in weight or night sweats Eyes Eyes: Denies blurry vision, change in vision, discharge from eye(s) or eye pain Cardiovascular Cardiovascular: Denies chest pain, claudication, edema or palpitations Respiratory/Chest Respiratory/Chest: Denies cough, dyspnea, excessive phlegm production, hemoptysis, productive cough, shortness of breath at rest or shortness of breath with exertion Gastrointestinal Gastrointestinal: Reports nausea and vomiting; Denies abdominal pain, constipation, diarrhea, hematemesis, hematochezia or melena Genitourinary Genitourinary: Denies dysuria, hematuria, nocturia, urinary frequency, urinary hesitancy, urinary incontinence or urinary urgency Musculoskeletal Musculoskeletal: Denies back pain, joint pain, joint stiffness, joint swelling, myalgias or neck pain Neurologic Neurologic: Denies abnormal gait, abnormal speech, dizziness, focal weakness, headache(s), loss of vision, numbness, other visual disturbances, paresthesias, syncope or tingling Psychiatric Psychiatric: Denies anxiety, cognitive impairment, depression, irritability, mood swings or suicidal ideation Endocrine Endocrinology: Denies change in body appearance, cold intolerance, excessive sweating, heat intolerance, polydipsia or polyuria Hematologic/Lymphatic Hematologic/Lymphatic: Denies none, anemia, easy bleeding, easy bruising or lymphadenopathy Allergic/Immunologic Allergic/Immunologic: Denies rhinitis, urticaria, eczemia or asthma Vital Signs Vital Signs Vital Signs: 07/23/23 09:02 07/23/23 09:04 07/23/23 09:26 Temperature 103.1 F H Temperature Source Oral Pulse Rate 103 H Respiratory Rate 20 H Respiratory Effort Normal Non-Labored Respiratory Pattern Normal Blood Pressure 134/78 H Blood Pressure Mean 96 Pulse Ox 90 Oxygen Delivery Method Room Air Room Air 07/23/23 11:29 07/23/23 13:39 07/23/23 13:41 Temperature 101 F H 100.9 F H 100.8 F H Temperature Source Core Core Pulse Rate 93 73 72 Respiratory Rate 13 13 20 H Respiratory Effort Respiratory Pattern Blood Pressure 105/58 L 109/50 L 109/50 L Blood Pressure Mean 73 69 69 Pulse Ox 92 93 94 Oxygen Delivery Method Room Air Room Air 07/23/23 14:01 07/23/23 16:00 07/23/23 16:00 Temperature 99.7 F H 99.7 F H Temperature Source Core Core Pulse Rate 72 67 Respiratory Rate 20 H 18 14 Respiratory Effort Respiratory Pattern Blood Pressure 110/63 110/63 Blood Pressure Mean 78 78 Pulse Ox 95 98 Oxygen Delivery Method Room Air Room Air 07/23/23 16:59 Temperature Temperature Source Pulse Rate Respiratory Rate Respiratory Effort Respiratory Pattern Blood Pressure Blood Pressure Mean Pulse Ox Oxygen Delivery Method Room Air Weight Weight: 114.8 kg Body Mass Index (BMI) 40.8 Physical Exam Const alert, oriented x3 and no apparent distress Constitutional Narrative: Patient appears unwell General Appearance: cooperative, well kempt and well developed Orientation / Consciousness: awake, oriented to person, oriented to place and oriented to time HEENT normocephalic, head/scalp atraumatic, hearing grossly normal bilaterally and moist oral mucous membranes Eyes PERRL, EOMs intact bilaterally and conjunctivae normal Neck supple, no JVD, thyroid normal and no carotid bruits General: trachea midline Resp normal respiratory effort, no retractions, no use of accessory muscles and clear to auscultation bilaterally Auscultation: Negative for rales, rhonchi or wheezes Cardio regular rate, regular rhythm, S1 normal heart sound, S2 normal heart sound, no murmurs, no rub and no gallops GI normal to inspection, nondistended, normoactive bowel sounds, soft to palpation, non-tender and non-distended Extremity no clubbing, cyanosis or edema Skin no rashes or lesions noted General Skin Exam: no breakdown Neuro oriented x3, CN's II-XII intact bilaterally, moves all extremities, no focal motor deficits and no sensory deficits noted Sensorium / Orientation: awake and alert Speech: speech normal Psych affect normal Results Lab / Micro Data 07/23/23 09:07 07/23/23 09:07 Labs: Laboratory Results - last 24 hr 07/23/23 09:07: WBC 4.0 L, RBC 4.31, Hgb 11.4 L, Hct 38.4, MCV 89.1, MCH 26.5 L, MCHC 29.7 L, RDW Std Deviation 48.8 H, RDW Coeff of Krystin 14.8 H, Plt Count 166, MPV 9.6, Immature Gran % (Auto) 0.300, Neut % (Auto) 90.6 H, Lymph % (Auto) 7.3 L, [place] % (Auto) 1.0, Eos % (Auto) 0.3, Baso % (Auto) 0.5, Absolute Neuts (auto) 3.6, Absolute Lymphs (auto) 0.29 L, Nucleated RBC % 0, Differential Comment SCANNED, PT 16.1 H, INR 1.3, APTT 35.7, Sodium 139, Potassium 4.0, Chloride 103, Carbon Dioxide 23.0, Anion Gap 13, BUN 17, Creatinine 1.05 H, Estim Creat Clear Calc 52.01, Est GFR (MDRD) Af Amer 68, Est GFR (MDRD) Non-Af 56 L, BUN/Creatinine Ratio 16.2, Glucose 181 H, Lactic Acid 2.9 H*, Calcium 9.1, Total Bilirubin 2.00 H, AST 100 H, ALT 86 H, Alkaline Phosphatase 239 H, Total Protein 7.2, Albumin 2.8 L, Globulin 4.4 H, Albumin/Globulin Ratio 0.6 L 07/23/23 10:19: Urine Color Yellow, Urine Clarity Sl. Cloudy, Urine pH 5.0, Ur Specific [place] 1.025, Urine Protein 100 H, Urine Glucose (UA) Normal, Urine Ketones 50 H, Urine Occult Blood 25 H, Urine Nitrite Negative, Urine Bilirubin 3 H, Urine Urobilinogen 8 H, Ur Leukocyte Esterase 25 H, Urine RBC 0-5 SEEN, Urine WBC 0-5 SEEN, Ur Squamous Epith Cells 0-5 SEEN, Urine Bacteria 2+, Urine Mucus 0 SEEN 07/23/23 13:54: Lactic Acid 1.3 Micro: Microbiology 07/23/23 09:07 Nasal Secretion SARS-CoV-2 Antigen (Rapid) - Final 07/23/23 09:07 Mucosa - Nasopharyngeal Influenza Types A,B Direct FA (ANGELES) - Final Radiology Impression Chest X-Ray 07/23/23 09:50 IMPRESSION: Normal x-ray examination of the chest. Electronically Signed: Brad Fonseca MD at 10:42 EST , Gallbladder Ultrasound 07/23/23 10:25 IMPRESSION: Hepatomegaly and diffuse fatty infiltration of the liver. Status post cholecystectomy. Electronically Signed: Brad Fonseca MD at 12:04 EST , Assessment & Plan Assessment/Plan (1) Bacteria in urine: PLAN: Plan 1. Acute cystitis with possible sepsis-patient will be admitted to PCU, she will be maintained on IV Zosyn, labs will be monitored, patient will be given IV fluids #2 elevated liver enzymes-etiology unclear at this point, CMP will be repeated #3 type 2 diabetes-blood sugars will be monitored via fingerstick blood sugars, she will remain on her current outpatient medications for diabetes #4 leukopenia-probably secondary to sepsis, CBC will be monitored Total clinical time spent by myself addressing the patient's medical issues, reviewing all her data, and collaborating with patient's care team: 55 minutes Charges/Coding Visit Charges Inpatient E&M: 78155 Init Hosp L2
[2023-07-23] MEDS: 0.9% Saline Lock 10 ML Syringe IV (18:39)
[2023-07-23] MEDS: 0.9% Normal Saline (1000mL) 1,000 ML 150 ML IV (18:39)
[2023-07-23 19:09] LABS: Bedside Glucose 122 mg/dL (74-106)
[2023-07-23] MEDS: Heparin Injection (Vial) 5,000 UNIT/ML VIAL 5000 UNIT SC (21:24)
[2023-07-23] MEDS: Piperacil/Tazobactam 3.375 GM in 0.9% Normal Saline (50mL MB+) 50 ML IV (21:44)
[2023-07-23 23:38] LABS: Bedside Glucose 100 mg/dL (74-106)
[2023-07-24] MEDS: 0.9% Normal Saline (1000mL) 1,000 ML 150 ML IV ×4 (00:34→18:53)
--- NOTE | 2023-07-24 00:39 | EKG12_ITS ---
Test Reason : CP Blood Pressure : / mmHG Vent. Rate : 076 BPM Atrial Rate : 076 BPM P-R Int : 216 ms QRS Dur : 084 ms QT Int : 410 ms P-R-T Axes : -10 020 030 degrees QTc Int : 461 ms Sinus rhythm with 1st degree A-V block with Premature atrial complexes in a pattern of bigeminy Low voltage QRS Borderline ECG When compared with ECG of 23-JUL-2023 09:24, MANUAL COMPARISON REQUIRED, DATA IS UNCONFIRMED Confirmed by CLARICE COLON, CHRISTINA ([id number]), copy editor SENA BAEZ ([id number]) on 08/04/2023 12:50:46 PM Referred By: DR BARRERA Confirmed By:CHRISTINA ONEIL MD
[2023-07-24] MEDS: Acetaminophen 325 MG Tablet 650 MG PO ×4 (00:55→22:05)
[2023-07-24 01:10] VITALS: BP 130/59; PULSE 75; RESP 18; TEMP 37.3; O2SAT 94
[2023-07-24 03:50] VITALS: BP 117/57; PULSE 74; RESP 16; TEMP 37.2; O2SAT 93
[2023-07-24] MEDS: Piperacil/Tazobactam 3.375 GM in 0.9% Normal Saline (50mL MB+) 50 ML IV ×3 (05:37→21:49)
[2023-07-24] MEDS: Baclofen 10 MG Tablet 20 MG PO ×3 (05:37→22:06)
[2023-07-24 07:03] LABS: Absolute Lymphocyte Count 0.82 X10^3/uL (0.83-4.51); Absolute Neutrophil Count 7.6 X10^3/uL (2.0-7.7); Basophil# 0.02 X10^3/uL; Basophil% 0.2 % (0-1); Eosinophil# 0.05 X10^3/uL; Eosinophils% 0.5 % (0-5); Hematocrit 31.9 % (37-47); Hemoglobin 9.6 g/dL (12.0-15.0); Lymphocyte # 0.82 X10^3/ul (0.83-4.51); Mean Corp Hgb Conc 30.1 g/dL (32-36); Mean Corpuscular Hgb 26.9 pg (27.0-32.0); Mean Corpuscular Volume 89.4 fL (81-99); Mean Platelet Vol. 9.7 fl (6.2-12.0); Monocyte% 6.6 % (0-10); NRBC Flagged by Analyzer 0 % (0-5); Neutrophil # 7.63 X10^3/uL (2.7-7.7); Neutrophil % 83.4 % (47-70); Platelet Count 142 K/mm3 (150-450); RBC Distribution Width CV 15.1 % (11.6-14.6); RBC Distribution Width SD 49.2 fl (35.1-43.9); Red Blood Count 3.57 M/mm3 (4.2-5.4); White Blood Count 9.2 K/mm3 (4.4-11.0)
[2023-07-24 07:13] LABS: Bedside Glucose 129 mg/dL (74-106)
[2023-07-24 07:52] LABS: ALB/GLOB Ratio 0.6 RATIO (0.9-2.4); AST(SGOT) 63 U/L (15-37); Alanine Aminotransfer ALT/SGPT 57 U/L (13-56); Albumin, Serum 2.3 g/dL (3.2-5.0); Alkaline Phosphatase 255 U/L (45-117); Anion Gap 5 (5-15); BUN 15 mg/dL (7-18); BUN/Creat Ratio 17.9 RATIO (10-20); Chloride 108 mmol/L (98-107); Creatinine, Serum 0.84 mg/dL (0.55-1.02); EST Glomerular Filtration Rate 73 mL/min (>60); Est Glom Filt Rate - Afr Amer 88 mL/min (>60); Estimated Creatinine Clearance 65.01 ml/min; Globulin 3.8 g/dL (2.2-4.2); Glucose 131 mg/dL (74-106); Potassium 3.3 mmol/L (3.5-5.1); Protein, Total 6.1 g/dL (6.4-8.2); Sodium Level 137 mmol/L (136-145)
[2023-07-24 07:53] LABS: Pathologist Review May foll
[2023-07-24] MEDS: Glucerna Shake 120 ML LIQUID PO (07:56)
[2023-07-24 10:19] VITALS: BP 103/49; PULSE 65; RESP 18; TEMP 36.3; O2SAT 93
[2023-07-24] MEDS: metFORMIN (XR) 500 MG Tablet PO (10:23)
[2023-07-24] MEDS: Montelukast 10 MG Tablet PO (10:23)
[2023-07-24] MEDS: Pramipexole Di-HCl 0.25 MG Tablet PO (10:24)
[2023-07-24] MEDS: Heparin Injection (Vial) 5,000 UNIT/ML VIAL 5000 UNIT SC ×2 (10:25→21:52)
[2023-07-24] MEDS: Loratadine 10 MG Tablet PO (10:25)
[2023-07-24] MEDS: Citalopram 40 MG TABLET PO (10:25)
[2023-07-24] MEDS: Potassium Chloride Oral Tablet 20 MEQ 40 MEQ PO (10:27)
[2023-07-24 11:20] LABS: Bedside Glucose 133 mg/dL (74-106)
--- NOTE | 2023-07-24 11:38 | CASEMGMT ---
NELLIE MACHADO Assessment: Face to Face with pt for initial transition planning/care coordination assessment. RN JEANNETTE introduced self and role at [facility], pt voices understanding and consents to assessment. Pt is A&O x4 and answers all questions appropriately at this time. Pt lying in bed in no distress with and dtr at bedside. Care providers, pharmacy, and demographics verified/updated. Admitting Dx:fever, suspected sepsis PCP:Esther Specialists: Marii neuro; bayron Hoang; [facility] Preferred Pharmacy:[facility] Retail Insurance:MMO Prescription Benefit: yes LNOK:Amado Christiansen, ; Ramandeep Christiansen, dtr Living Arrangements: Pt lives with in a single story home. Pt reports she is I in ADL's and denies concerns at home. Transportation: Pt drives self and denies concerns with transportation. DME:[facility]GM with sufficient supply of strips and lancets HHC/SNF:Pt denies hx of Pt states no concerns with going home at time of dc. She states this illness has taken the wind out of my sails. She denies need for any services at home or outpt. Pt states no further concerns/needs. CM to follow. Advised pt to ask CM if any further question/concerns/needs arise, voices understanding. Pt Goal:Home Plan:Home
--- NOTE | 2023-07-24 13:31 | PN.HOSP_ITS ---
Reason for Visit Reason for Visit: Diagnoses Bacteriuria (07/23/23) Subjective Subjective Patient was seen and examined today, her preliminary blood cultures positive for gram-negative rods, her white blood cell count today is normal and she is af ebrile. Potassium was low at 3.3. Objective Data Objective Data Vital Signs: Vital Signs Temp Pulse Resp BP Pulse Ox O2 Del Method 97.4 F L 65 18 103/49 L 93 Room Air 07/24/23 10:19 07/24/23 10:19 07/24/23 10:19 07/24/23 10:19 07/24/23 10:19 07/24/23 10:19 Oxygen Delivery Method Room Air Weight: 114.8 kg Body Mass Index (BMI) 40.8 Intake & Output: Intake and Output for Last 24 Hours 07/22/23 07/23/23 07/24/23 23:59 23:59 23:59 Intake Total 2100 / 2400 3535.0 / 3535.0 Output Total 1250 / 1250 Balance 2100 / 1900 2285.0 / 2285.0 Lab / Micro Data 07/24/23 06:56 07/24/23 06:56 Labs: Laboratory Results - last 24 hr 07/23/23 09:07: Diff Path Review January07/23/23 13:54: Lactic Acid 1.3 07/23/23 18:50: POC Glucose 122 H 07/23/23 21:32: POC Glucose 100 07/24/23 06:19: POC Glucose 129 H 07/24/23 06:56: WBC 9.2, RBC 3.57 L, Hgb 9.6 L, Hct 31.9 L, MCV 89.4, MCH 26.9 L , MCHC 30.1 L, RDW Std Deviation 49.2 H, RDW Coeff of Krystin 15.1 H, Plt Count 142 L, MPV 9.7, Immature Gran % (Auto) 0.300, Neut % (Auto) 83.4 H, Lymph % (Auto) 9.0 L, [place] % (Auto) 6.6, Eos % (Auto) 0.5, Baso % (Auto) 0.2, Absolute Neuts (auto) 7.6, Absolute Lymphs (auto) 0.82 L, Nucleated RBC % 0, Sodium 137, Potassium 3.3 L, Chloride 108 H, Carbon Dioxide 24.0, Anion Gap 5, BUN 15, Creatinine 0.84, Estim Creat Clear Calc 65.01, Est GFR (MDRD) Af Amer 88, Est GFR (MDRD) Non-Af 73, BUN/Creatinine Ratio 17.9, Glucose 131 H, Calcium 8.0 L, Total Bilirubin 1.70 H, AST 63 H, ALT 57 H, Alkaline Phosphatase 255 H, Total Protein 6.1 L, Albumin 2.3 L, Globulin 3.8, Albumin/Globulin Ratio 0.6 L 07/24/23 10:59: POC Glucose 133 H Micro: Microbiology 07/23/23 10:19 Urine, Clean Catch Urine Culture - Preliminary Culture exhibits no growth. 07/24/23 02:30 Urine Catheter - Catheter Streptococcus pneumoniae Antigen (M - Final 07/24/23 02:30 Urine Catheter - Pete Legionella Antigen - Final 07/23/23 09:30 Blood Culture (Wb) - Anticubital Right Blood Culture - Preliminary 07/23/23 09:07 Nasal Secretion SARS-CoV-2 Antigen (Rapid) - Final 07/23/23 09:07 Mucosa - Nasopharyngeal Influenza Types A,B Direct FA (ANGELES) - Final Physical Exam Const alert, oriented x3 and no apparent distress Constitutional Narrative: Patient is morbidly obese General Appearance: cooperative, well kempt and well developed Orientation / Consciousness: awake, oriented to person, oriented to place and oriented to time HEENT normocephalic, head/scalp atraumatic and moist oral mucous membranes Eyes PERRL, EOMs intact bilaterally and conjunctivae normal Neck supple, no JVD, thyroid normal and no carotid bruits General: trachea midline Resp normal respiratory effort, no retractions, no use of accessory muscles and clear to auscultation bilaterally Auscultation: Negative for rales, rhonchi or wheezes Cardio regular rate, regular rhythm, S1 normal heart sound, S2 normal heart sound, no murmurs, no rub and no gallops GI normal to inspection, nondistended, normoactive bowel sounds, soft to palpation, non-tender and non-distended Extremity no clubbing, cyanosis or edema Skin no rashes or lesions noted General Skin Exam: no breakdown Neuro oriented x3, CN's II-XII intact bilaterally, no focal motor deficits and no sensory deficits noted Sensorium / Orientation: awake and alert Speech: speech normal Psych affect normal Assessment & Plan Assessment/Plan (1) Bacteria in urine: PLAN: Plan 1. Acute cystitis with possible sepsis-I will continue the patient on Zosyn at this time, final blood culture results and urine culture pending at this time #2 elevated liver enzymes-etiology unclear at this point, CMP will be repeated, liver enzymes are improving except for her alkaline phosphatase #3 type 2 diabetes-blood sugars will be monitored via fingerstick blood sugars, she will remain on her current outpatient medications for diabetes #4 leukopenia-resolved at this time Total clinical time spent by myself addressing the patient's medical issues, reviewing all her data, and collaborating with patient's care team: 35 minutes Charges/Coding Visit Charges Inpatient E&M: 95588 Subs Hosp L2
[2023-07-24] MEDS: Ondansetron 4 MG/2 ML Vial IV ×2 (13:37→21:45)
--- NOTE | 2023-07-24 13:49 | CASEMGMT ---
Social Work SW introduced self and role to patient. SDOH evaluation indicated. SDOH explained and patient agreeable to answer questions. Pt did not indicated any needs and denies housing needs which were indicated. Pt has stable housing with spouse, no financial concerns and declined safety or mental health needs. SW provided emotional support. Pt denies any further SW needs at this time. Verena Marie PRICING DIRECTOR, MANAGER BUDGET
[2023-07-24 15:25] VITALS: BP 129/78; PULSE 71; RESP 18; TEMP 36.3; O2SAT 92
[2023-07-24] MEDS: Pramipexole Di-HCl 0.5 MG Tablet PO ×2 (17:06→22:07)
[2023-07-24 17:17] LABS: Bedside Glucose 125 mg/dL (74-106)
[2023-07-24] MEDS: 0.9% Saline Lock 10 ML Syringe IV (21:48)
[2023-07-24 22:10] VITALS: BP 132/78; PULSE 73; RESP 16; TEMP 37.2; O2SAT 93
[2023-07-24 23:44] LABS: Bedside Glucose 119 mg/dL (74-106)
[2023-07-25] MEDS: 0.9% Normal Saline (1000mL) 1,000 ML 150 ML IV ×4 (01:24→20:30)
[2023-07-25] MEDS: Ketorolac 15 MG/ML Vial IV (01:46)
[2023-07-25] MEDS: 0.9% Saline Lock 10 ML Syringe IV ×2 (01:50→09:56)
[2023-07-25 03:36] VITALS: BP 135/81; PULSE 77; RESP 16; TEMP 37.3; O2SAT 93
[2023-07-25] MEDS: Acetaminophen 325 MG Tablet 650 MG PO (06:08)
[2023-07-25] MEDS: Baclofen 10 MG Tablet 20 MG PO ×3 (06:08→22:46)
[2023-07-25] MEDS: Piperacil/Tazobactam 3.375 GM in 0.9% Normal Saline (50mL MB+) 50 ML IV ×3 (06:08→20:27)
[2023-07-25 06:14] LABS: Absolute Lymphocyte Count 0.83 X10^3/uL (0.83-4.51); Absolute Neutrophil Count 7.7 X10^3/uL (2.0-7.7); Basophil# 0.02 X10^3/uL; Basophil% 0.2 % (0-1); Eosinophil# 0.06 X10^3/uL; Eosinophils% 0.6 % (0-5); Hematocrit 30.1 % (37-47); Hemoglobin 8.9 g/dL (12.0-15.0); Lymphocyte # 0.83 X10^3/ul (0.83-4.51); Lymphocyte % 8.8 % (19-41); Mean Corp Hgb Conc 29.6 g/dL (32-36); Mean Corpuscular Hgb 26.2 pg (27.0-32.0); Mean Corpuscular Volume 88.5 fL (81-99); Mean Platelet Vol. 9.5 fl (6.2-12.0); Monocyte# 0.79 X10^3/uL; Monocyte% 8.4 % (0-10); NRBC Flagged by Analyzer 0 % (0-5); Neutrophil % 81.6 % (47-70); Platelet Count 167 K/mm3 (150-450); RBC Distribution Width CV 15.5 % (11.6-14.6); RBC Distribution Width SD 50.5 fl (35.1-43.9); White Blood Count 9.4 K/mm3 (4.4-11.0)
[2023-07-25 06:51] LABS: ALB/GLOB Ratio 0.6 RATIO (0.9-2.4); AST(SGOT) 60 U/L (15-37); Alanine Aminotransfer ALT/SGPT 54 U/L (13-56); Albumin, Serum 2.3 g/dL (3.2-5.0); Alkaline Phosphatase 292 U/L (45-117); Anion Gap 5 (5-15); BUN 16 mg/dL (7-18); Calcium,Total 7.9 mg/dL (8.5-10.1); Chloride 108 mmol/L (98-107); Creatinine, Serum 0.76 mg/dL (0.55-1.02); EST Glomerular Filtration Rate 82 mL/min (>60); Est Glom Filt Rate - Afr Amer 99 mL/min (>60); Estimated Creatinine Clearance 71.85 ml/min; Globulin 4.1 g/dL (2.2-4.2); Glucose 129 mg/dL (74-106); Potassium 3.6 mmol/L (3.5-5.1); Protein, Total 6.4 g/dL (6.4-8.2); Sodium Level 137 mmol/L (136-145)
[2023-07-25 06:58] LABS: Bedside Glucose 109 mg/dL (74-106)
--- NOTE | 2023-07-25 08:56 | CT_ITS ---
STUDY: CT ABDOMEN AND PELVIS WITH AND WITHOUT CONTRAST REASON FOR EXAM: Female, 62 years old. bacteremia, r/o abcess -- IV and oral contrast RADIATION DOSAGE (If Supplied By Facility): CTDIvol = ( 23.06 ) mGy, DLP = ( 2986.21 ) mGycm TECHNIQUE: Transaxial images were obtained from the dome of the diaphragm to the symphysis pubis with oral contrast. Oral and amp; IV Gastrografin and amp; 100mL Isovue-370 was administered. Sagittal and coronal images were reconstructed. Individualized dose optimization techniques were used for this CT. COMPARISON: None. FINDINGS: Small right pleural effusion with some right lower lobe atelectasis. The visualized portions of the heart are within normal limits. There is decreased attenuation of the liver consistent with steatosis. There are surgical clips in the gallbladder fossa consistent with a prior cholecystectomy. Normal spleen. Normal pancreas. Normal bilateral adrenal glands. Normal right kidney. Normal left kidney. Normal visualized stomach. Wall thickening and stranding of surrounding fat of the second portion the duodenum suggestive of duodenitis. No loculated fluid collection to suggest abscess. No extraluminal gas to suggest perforation. Endoscopy may be useful. There are multiple colonic diverticula consistent with diverticulosis. The appendix is visualized and appears normal. Normal abdominal aorta. Normal inferior vena cava. Normal retroperitoneum. Normal urinary bladder. Normal abdominal wall. Normal osseous structures. CT/CT Abd/Pelvis W/WO Contrast IMPRESSION: 1. Suspect duodenitis. No abscess or perforation. Endoscopy may be useful. 2. Small right pleural effusion with some right lower lobe atelectasis. 3. Diffuse diverticulosis without diverticulitis. Electronically Signed: Lyle Herring MD at 13:36 EST ,
--- NOTE | 2023-07-25 09:27 | PCM.PN.HOSP ---
Reason for Visit Reason for Visit: Diagnoses Bacteremia (07/23/23) Bacteriuria (07/23/23) Subjective Subjective Patient was seen and examined today, her urine culture was negative, pending blood culture again showed a gram-negative benjamin-I am awaiting identification of this organism, patient's white blood cell count remains normal, she is running a low-grade temperature today at 99.2. I have decided to order a CT of the abdomen and pelvis with and without contrast to make sure that there is no GI pathology, patient's abdomen is soft and she is not complaining of any abdominal discomfort. Patient does complain of a headache today, I ordered Fioricet for her headache. I talked with the patient's who was in the room at the time my examination today. Objective Data Objective Data Vital Signs: Vital Signs Temp Pulse Resp BP Pulse Ox O2 Del Method 99.2 F H 77 16 135/81 H 93 Room Air 07/25/23 03:36 07/25/23 03:36 07/25/23 03:36 07/25/23 03:36 07/25/23 03:36 07/25/23 07:55 Oxygen Delivery Method Room Air Weight: 114.8 kg Body Mass Index (BMI) 40.8 Intake & Output: Intake and Output for Last 24 Hours 07/23/23 07/24/23 07/25/23 23:59 23:59 23:59 Intake Total 2100 / 2400 5285.0 / 5485.0 2340.0 / 2340.0 Output Total 2400 / 2750 600 / 600 Balance 2100 / 1900 2885.0 / 2735.0 1740.0 / 1740.0 Lab / Micro Data 07/25/23 05:35 07/25/23 05:35 Labs: Laboratory Results - last 24 hr 07/24/23 10:59: POC Glucose 133 H 07/24/23 16:41: POC Glucose 125 H 07/24/23 22:02: POC Glucose 119 H 07/25/23 05:35: WBC 9.4, RBC 3.40 L, Hgb 8.9 L, Hct 30.1 L, MCV 88.5, MCH 26.2 L, MCHC 29.6 L, RDW Std Deviation 50.5 H, RDW Coeff of Krystin 15.5 H, Plt Count 167, MPV 9.5, Immature Gran % (Auto) 0.400, Neut % (Auto) 81.6 H, Lymph % (Auto) 8.8 L, [place] % (Auto) 8.4, Eos % (Auto) 0.6, Baso % (Auto) 0.2, Absolute Neuts (auto) 7.7, Absolute Lymphs (auto) 0.83, Nucleated RBC % 0, Sodium 137, Potassium 3.6, Chloride 108 H, Carbon Dioxide 24.0, Anion Gap 5, BUN 16, Creatinine 0.76, Estim Creat Clear Calc 71.85, Est GFR (MDRD) Af Amer 99, Est GFR (MDRD) Non-Af 82, BUN/Creatinine Ratio 21.0 H, Glucose 129 H, Calcium 7.9 L, Total Bilirubin 1.70 H, AST 60 H, ALT 54, Alkaline Phosphatase 292 H, Total Protein 6.4, Albumin 2.3 L, Globulin 4.1, Albumin/Globulin Ratio 0.6 L 07/25/23 06:13: POC Glucose 109 H Micro: Microbiology 07/23/23 10:19 Urine, Clean Catch Urine Culture - Final Culture exhibits no growth. 07/23/23 09:30 Blood Culture (Wb) - Anticubital Right Blood Culture - Preliminary GNR lactose senior qualitative researcher 07/23/23 09:07 Blood Culture (Wb) - Right Wrist Blood Culture - Preliminary 07/24/23 02:30 Urine Catheter - Catheter Streptococcus pneumoniae Antigen (M - Final 07/24/23 02:30 Urine Catheter - Pete Legionella Antigen - Final 07/23/23 09:07 Nasal Secretion SARS-CoV-2 Antigen (Rapid) - Final 07/23/23 09:07 Mucosa - Nasopharyngeal Influenza Types A,B Direct FA (ANGELES) - Final Physical Exam Const alert, oriented x3 and no apparent distress General Appearance: cooperative, well kempt and well developed Orientation / Consciousness: awake, oriented to person, oriented to place and oriented to time HEENT normocephalic, head/scalp atraumatic and moist oral mucous membranes Eyes PERRL, EOMs intact bilaterally and conjunctivae normal Neck supple, no JVD, thyroid normal and no carotid bruits General: trachea midline Resp normal respiratory effort, no retractions, no use of accessory muscles and clear to auscultation bilaterally Auscultation: Negative for rales, rhonchi or wheezes Cardio regular rate, regular rhythm, S1 normal heart sound, S2 normal heart sound, no murmurs, no rub and no gallops GI normal to inspection, nondistended, normoactive bowel sounds, soft to palpation, non-tender and non-distended Extremity no clubbing, cyanosis or edema Skin no rashes or lesions noted General Skin Exam: no breakdown Neuro oriented x3, CN's II-XII intact bilaterally, no focal motor deficits and no sensory deficits noted Sensorium / Orientation: awake and alert Speech: speech normal Psych affect normal Assessment & Plan Assessment/Plan (1) Bacteremia: (2) Bacteria in urine: PLAN: Plan 1. Acute cystitis with possible sepsis-I will continue the patient on Zosyn at this time, final blood culture results are pending at this time, not sure why the patient's urine culture showed no growth, again I will be proceeding with a CT of the abdomen and pelvis to rule out any GI pathology #2 elevated liver enzymes-etiology unclear at this point, patient's alkaline phosphatase remains elevated, I will repeat her liver profile tomorrow #3 type 2 diabetes-blood sugars will be monitored via fingerstick blood sugars, she will remain on her current outpatient medications for diabetes #4 leukopenia-resolved at this time Total clinical time spent by myself addressing the patient's medical issues, reviewing all her data, and collaborating with patient's care team: 35 minutes Charges/Coding Visit Charges Inpatient E&M: 91235 Subs Hosp L2
[2023-07-25] MEDS: Ondansetron 4 MG/2 ML Vial IV (09:56)
[2023-07-25 10:05] VITALS: BP 132/78; PULSE 77; RESP 18; TEMP 36.7; O2SAT 94
[2023-07-25] MEDS: Acetaminophen/Butalbital/Caffe 1 Tablet 2 TABLET PO ×2 (10:11→20:22)
[2023-07-25] MEDS: Heparin Injection (Vial) 5,000 UNIT/ML VIAL 5000 UNIT SC ×2 (10:11→20:26)
[2023-07-25 11:44] LABS: Bedside Glucose 112 mg/dL (74-106)
[2023-07-25] MEDS: Pramipexole Di-HCl 0.25 MG Tablet PO (12:40)
[2023-07-25] MEDS: metFORMIN (XR) 500 MG Tablet PO (12:40)
[2023-07-25] MEDS: Montelukast 10 MG Tablet PO (12:41)
[2023-07-25] MEDS: Citalopram 40 MG TABLET PO (12:41)
[2023-07-25] MEDS: Loratadine 10 MG Tablet PO (12:41)
--- NOTE | 2023-07-25 14:21 | PCM.HOSP.N ---
Hospitalist Note Patient's CT scan was remarkable for duodenitis and diverticulosis, there is no intra-abdominal abscess noted and no sign of a neoplasm. Patient will be placed on Protonix, I had a discussion with the patient and her concerning these results.
[2023-07-25 15:00] VITALS: BP 124/72; PULSE 72; RESP 18; TEMP 36.6; O2SAT 92
[2023-07-25 15:30] VITALS: O2SAT 88
[2023-07-25] MEDS: Pantoprazole Sodium 40 MG Tablet PO (16:23)
[2023-07-25] MEDS: Pramipexole Di-HCl 0.5 MG Tablet PO ×2 (16:23→22:45)
[2023-07-25 16:58] LABS: Bedside Glucose 107 mg/dL (74-106)
[2023-07-25 18:21] VITALS: O2SAT 96
[2023-07-25 18:38] LABS: Bedside Glucose 95 mg/dL (74-106)
[2023-07-25 20:45] VITALS: BP 139/76; PULSE 71; RESP 18; TEMP 36.7; O2SAT 94
[2023-07-25 21:47] LABS: Bedside Glucose 122 mg/dL (74-106)
[2023-07-26 02:45] VITALS: BP 137/83; PULSE 72; RESP 18; TEMP 36; O2SAT 97
[2023-07-26] MEDS: 0.9% Normal Saline (1000mL) 1,000 ML 150 ML IV ×3 (02:57→16:26)
[2023-07-26 06:23] LABS: Absolute Lymphocyte Count 1.49 X10^3/uL (0.83-4.51); Absolute Neutrophil Count 7.1 X10^3/uL (2.0-7.7); Basophil# 0.04 X10^3/uL; Basophil% 0.4 % (0-1); Eosinophil# 0.09 X10^3/uL; Eosinophils% 0.9 % (0-5); Hematocrit 28.5 % (37-47); Hemoglobin 8.5 g/dL (12.0-15.0); Lymphocyte # 1.49 X10^3/ul (0.83-4.51); Lymphocyte % 15.2 % (19-41); Mean Corp Hgb Conc 29.8 g/dL (32-36); Mean Corpuscular Volume 87.2 fL (81-99); Mean Platelet Vol. 9.5 fl (6.2-12.0); Monocyte# 0.97 X10^3/uL; Monocyte% 9.9 % (0-10); NRBC Flagged by Analyzer 0 % (0-5); Neutrophil # 7.05 X10^3/uL (2.7-7.7); Neutrophil % 72.1 % (47-70); Platelet Count 169 K/mm3 (150-450); RBC Distribution Width CV 15.6 % (11.6-14.6); RBC Distribution Width SD 50.4 fl (35.1-43.9); Red Blood Count 3.27 M/mm3 (4.2-5.4); White Blood Count 9.8 K/mm3 (4.4-11.0)
[2023-07-26] MEDS: Piperacil/Tazobactam 3.375 GM in 0.9% Normal Saline (50mL MB+) 50 ML IV ×3 (06:29→22:08)
[2023-07-26] MEDS: Baclofen 10 MG Tablet 20 MG PO ×3 (06:29→22:11)
[2023-07-26] MEDS: Acetaminophen/Butalbital/Caffe 1 Tablet 2 TABLET PO ×3 (06:36→19:01)
[2023-07-26 07:17] LABS: Bedside Glucose 107 mg/dL (74-106)
[2023-07-26 07:30] VITALS: O2SAT 93
--- NOTE | 2023-07-26 09:03 | PCM.PN.HOSP ---
Subjective Subjective Feeling better. Objective Data Objective Data Vital Signs: Vital Signs Temp Pulse Resp BP Pulse Ox O2 Del Method O2 Flow Rate 36.0 C L 72 18 137/83 H 97 Nasal Cannula 2 07/26/23 02:45 07/26/23 02:45 07/26/23 02:45 07/26/23 02:45 07/26/23 02:45 07/26/23 07:45 07/26/23 07:45 Oxygen Flow Rate (L/min) 2 Oxygen Delivery Method Nasal Cannula Weight: 114.8 kg Body Mass Index (BMI) 40.8 Intake & Output: Intake and Output for Last 24 Hours 07/24/23 07/25/23 07/26/23 23:59 23:59 23:59 Intake Total 5285.0 / 5485.0 6670.0 / 6670.0 1017.5 / 1017.5 Output Total 2400 / 2750 600 / 600 Balance 2885.0 / 2735.0 6070.0 / 6070.0 1017.5 / 1017.5 Lab / Micro Data 07/26/23 06:08 07/25/23 05:35 Labs: Laboratory Results - last 24 hr 07/25/23 11:21: POC Glucose 112 H 07/25/23 16:22: POC Glucose 107 H 07/25/23 18:16: POC Glucose 95 07/25/23 20:25: POC Glucose 122 H 07/26/23 06:08: WBC 9.8, RBC 3.27 L, Hgb 8.5 L, Hct 28.5 L, MCV 87.2, MCH 26.0 L, MCHC 29.8 L, RDW Std Deviation 50.4 H, RDW Coeff of Krystin 15.6 H, Plt Count 169, MPV 9.5, Immature Gran % (Auto) 1.500 H, Neut % (Auto) 72.1 H, Lymph % (Auto) 15.2 L, [place] % (Auto) 9.9, Eos % (Auto) 0.9, Baso % (Auto) 0.4, Absolute Neuts (auto) 7.1, Absolute Lymphs (auto) 1.49, Nucleated RBC % 0 07/26/23 06:28: POC Glucose 107 H Micro: Microbiology 07/23/23 09:07 Blood Culture (Wb) - Right Wrist Blood Culture - Final Bacteroides fragilis 07/23/23 09:30 Blood Culture (Wb) - Anticubital Right Blood Culture - Final Escherichia coli 07/23/23 10:19 Urine, Clean Catch Urine Culture - Final Culture exhibits no growth. 07/24/23 02:30 Urine Catheter - Catheter Streptococcus pneumoniae Antigen (M - Final 07/24/23 02:30 Urine Catheter - Pete Legionella Antigen - Final 07/23/23 09:07 Nasal Secretion SARS-CoV-2 Antigen (Rapid) - Final 07/23/23 09:07 Mucosa - Nasopharyngeal Influenza Types A,B Direct FA (ANGELES) - Final Radiography Diagnostic Testing: Radiology Impression Abdomen/Pelvis CT 07/25/23 08:56 IMPRESSION: 1. Suspect duodenitis. No abscess or perforation. Endoscopy may be useful. 2. Small right pleural effusion with some right lower lobe atelectasis. 3. Diffuse diverticulosis without diverticulitis. Electronically Signed: Lyle Herring MD at 13:36 EST , Physical Exam Const alert and no apparent distress HEENT head/scalp atraumatic and moist oral mucous membranes Resp normal respiratory effort, no retractions, no use of accessory muscles and clear to auscultation bilaterally Cardio regular rate, regular rhythm, S1 normal heart sound and S2 normal heart sound GI normal to inspection, nondistended, normoactive bowel sounds, soft to palpation, non-tender and non-distended Extremity normal to inspection Neuro Sensorium / Orientation: awake and alert Assessment & Plan Assessment/Plan (1) Bacteremia: PLAN: BCx on 07/23 one w Bacteroides fragilis and the other with E. coli (martinez sensitive). I'm not sure bacteroides is a true infection as it is anaerobic and more associate with severe GI issues, including ruptured viscera. RUQ US: showed hepatomegaly and diffuse fatty infiltration fo the liver. UA and UCx negative, so urinary is not the source. (2) Hyperbilirubinemia: PLAN: Unclear significance Trending down overall. RUQ US: showed hepatomegaly and diffuse fatty infiltration fo the liver. PLAN: Plan type 2 diabetes-blood sugars will be monitored via fingerstick blood sugars, she will remain on her current outpatient medications for diabetes leukopenia-resolved at this time VTE prophylaxis: SQ heparin. Charges/Coding Visit Charges Inpatient E&M: 63924 Subs Hosp L2
[2023-07-26 09:35] VITALS: BP 120/75; PULSE 60; RESP 15; TEMP 36.8; O2SAT 99
[2023-07-26] MEDS: Citalopram 40 MG TABLET PO (09:46)
[2023-07-26] MEDS: Pantoprazole Sodium 40 MG Tablet PO (09:46)
[2023-07-26] MEDS: Loratadine 10 MG Tablet PO (09:46)
[2023-07-26] MEDS: Montelukast 10 MG Tablet PO (09:47)
[2023-07-26] MEDS: Heparin Injection (Vial) 5,000 UNIT/ML VIAL 5000 UNIT SC ×2 (09:47→22:10)
--- NOTE | 2023-07-26 11:20 | EKG12_ITS ---
Test Reason : AFIB Blood Pressure : / mmHG Vent. Rate : 067 BPM Atrial Rate : 000 BPM P-R Int : 000 ms QRS Dur : 080 ms QT Int : 446 ms P-R-T Axes : 000 012 038 degrees QTc Int : 471 ms Accelerated Junctional rhythm Low voltage QRS Abnormal ECG When compared with ECG of 24-JUL-2023 00:52, MANUAL COMPARISON REQUIRED, DATA IS UNCONFIRMED Confirmed by CLARICE COLON, CHRISTINA ([id number]), advertising editor SENA BAEZ ([id number]) on 08/04/2023 1:11:11 PM Referred By: BRUCE Confirmed By:CHRISTINA ONEIL MD
[2023-07-26 11:32] LABS: Bedside Glucose 102 mg/dL (74-106)
[2023-07-26] MEDS: Pramipexole Di-HCl 0.25 MG Tablet PO (12:42)
[2023-07-26 16:39] VITALS: BP 138/75; PULSE 77; RESP 17; TEMP 37.1; O2SAT 91
[2023-07-26] MEDS: Pramipexole Di-HCl 0.5 MG Tablet PO ×2 (16:49→22:12)
[2023-07-26 17:09] LABS: Bedside Glucose 125 mg/dL (74-106)
[2023-07-26] MEDS: Acetaminophen 325 MG Tablet 650 MG PO (20:16)
--- NOTE | 2023-07-26 21:44 | RAD_ITS ---
INDICATION: Bloating EXAMINATION/TECHNIQUE: X-RAY - XR Abdomen 1 View: 3 image AP abdomen COMPARISON: CT July 25, 2023 FINDINGS: BOWEL GAS PATTERN: Nonspecific non-obstructive bowel gas pattern. No focal bowel distention. Progressive passage of enteric contrast into and throughout the colon from prior CT.. FREE AIR: Not well assessed on a supine view. ORGANOMEGALY: Not seen. CALCIFICATIONS: Pelvic phleboliths. LOWER CHEST: No acute pathology. BONES AND SOFT TISSUES: Bilateral SI joint degenerative change. Right upper quadrant surgical clips are present. RAD/Abdomen Single View (Portable) IMPRESSION: Non-obstructive bowel gas pattern. Electronically Signed: Brandan Childress MD at 0:35 EST ,
[2023-07-26] MEDS: Ketorolac 15 MG/ML Vial IV (22:01)
[2023-07-26 22:07] VITALS: BP 140/82; PULSE 65; RESP 18; TEMP 36.9; O2SAT 93
[2023-07-26 22:42] LABS: Bedside Glucose 101 mg/dL (74-106)
[2023-07-27 03:40] VITALS: BP 145/77; PULSE 58; RESP 18; TEMP 36.2; O2SAT 98
[2023-07-27] MEDS: Piperacil/Tazobactam 3.375 GM in 0.9% Normal Saline (50mL MB+) 50 ML IV (04:58)
[2023-07-27] MEDS: Baclofen 10 MG Tablet 20 MG PO ×2 (04:59→13:21)
[2023-07-27 05:21] LABS: Bedside Glucose 104 mg/dL (74-106)
[2023-07-27 06:28] LABS: Hematocrit 29.3 % (37-47); Hemoglobin 8.5 g/dL (12.0-15.0); Mean Corpuscular Hgb 25.7 pg (27.0-32.0); Mean Corpuscular Volume 88.5 fL (81-99); Mean Platelet Vol. 9.5 fl (6.2-12.0); POSITIVE COUNT YES; POSITIVE MORPHOLOGY YES; Platelet Count 226 K/mm3 (150-450); RBC Distribution Width CV 16.1 % (11.6-14.6); RBC Distribution Width SD 52.5 fl (35.1-43.9); Red Blood Count 3.31 M/mm3 (4.2-5.4); White Blood Count 11.4 K/mm3 (4.4-11.0)
[2023-07-27 06:45] LABS: Differential Indicated MANUAL DIFF
[2023-07-27 06:50] LABS: Bedside Glucose 110 mg/dL (74-106)
[2023-07-27 07:04] LABS: Basophil 1 % (0-1); Eosinophil 2 % (0-5); Lymphocyte 17 % (19-41); Monocyte 12 % (0-10); Myelocyte 2 % (0-0); Neutrophil-Band 4 % (0-5); Neutrophil-Segmented 62 % (47-70); Platelet Estimate ADEQUATE (ADEQ); Total Cells Counted 100 (MANUAL DIFF)
[2023-07-27 07:05] LABS: Absolute Lymphocyte Count 1.93 X10^3/uL (0.83-4.51); Absolute Neutrophil Count 7.5 X10^3/uL (2.0-7.7); Hypochromasia 2+; Lymphocyte # 1.93 X10^3/ul (0.83-4.51); Red Cell Morphology N CYTIC NORMAL (NORM C&C)
[2023-07-27 07:20] LABS: ALB/GLOB Ratio 0.6 RATIO (0.9-2.4); AST(SGOT) 94 U/L (15-37); Alanine Aminotransfer ALT/SGPT 87 U/L (13-56); Albumin, Serum 2.3 g/dL (3.2-5.0); Alkaline Phosphatase 320 U/L (45-117); Anion Gap 5 (5-15); BUN 12 mg/dL (7-18); BUN/Creat Ratio 17.8 RATIO (10-20); Calcium,Total 8.2 mg/dL (8.5-10.1); Chloride 107 mmol/L (98-107); Creatinine, Serum 0.68 mg/dL (0.55-1.02); EST Glomerular Filtration Rate 94 mL/min (>60); Est Glom Filt Rate - Afr Amer 113 mL/min (>60); Globulin 4.1 g/dL (2.2-4.2); Glucose 129 mg/dL (74-106); Potassium 3.1 mmol/L (3.5-5.1); Protein, Total 6.4 g/dL (6.4-8.2); Sodium Level 139 mmol/L (136-145)
[2023-07-27 07:22] VITALS: O2SAT 94
--- NOTE | 2023-07-27 08:13 | PCM.PN.HOSP ---
Reason for Visit Reason for Visit: Diagnoses Other disorders of bilirubin metabolism (07/23/23) Bacteremia (07/23/23) Bacteriuria (07/23/23) Subjective Subjective Feels well. Denies complaints. Ready to go home. Objective Data Objective Data Vital Signs: Vital Signs Temp Pulse Resp BP Pulse Ox O2 Del Method O2 Flow Rate 36.2 C L 58 L 18 145/77 H 98 Nasal Cannula 2 07/27/23 03:40 07/27/23 03:40 07/27/23 03:40 07/27/23 03:40 07/27/23 03:40 07/27/23 03:43 07/27/23 03:43 Oxygen Flow Rate (L/min) 2 Oxygen Delivery Method Nasal Cannula Weight: 114.8 kg Body Mass Index (BMI) 40.8 Intake & Output: Intake and Output for Last 24 Hours 07/25/23 07/26/23 07/27/23 23:59 23:59 23:59 Intake Total 6670.0 / 6670.0 4720.0 / 4840.0 320 / 320 Output Total 600 / 600 Balance 6070.0 / 6070.0 4720.0 / 4840.0 320 / 320 Lab / Micro Data 07/27/23 06:11 07/27/23 06:11 Labs: Laboratory Results - last 24 hr 07/26/23 11:13: POC Glucose 102 07/26/23 16:47: POC Glucose 125 H 07/26/23 22:06: POC Glucose 101 07/27/23 04:58: POC Glucose 104 07/27/23 06:11: WBC 11.4 H, RBC 3.31 L, Hgb 8.5 L, Hct 29.3 L, MCV 88.5, MCH 25.7 L, MCHC 29.0 L, RDW Std Deviation 52.5 H, RDW Coeff of Krystin 16.1 H, Plt Count 226, MPV 9.5, Neut % (Auto) Not Reportable, Absolute Neuts (auto) 7.5, Absolute Lymphs (auto) 1.93, Total Counted 100, Neutrophils % (Manual) 62, Band Neutrophils % 4, Lymphocytes % (Manual) 17 L, Monocytes % (Manual) 12 H, Eosinophils % (Manual) 2, Basophils % (Manual) 1, Myelocytes % 2 H, Diff Path Review May foll, Platelet Estimate ADEQUATE, RBC Morphology N CYTIC, Hypochromasia 2+, Sodium 139, Potassium 3.1 L, Chloride 107, Carbon Dioxide 27.0, Anion Gap 5, BUN 12, Creatinine 0.68, Estim Creat Clear Calc 80.30, Est GFR (MDRD) Af Amer 113, Est GFR (MDRD) Non-Af 94, BUN/Creatinine Ratio 17.8, Glucose 129 H, Calcium 8.2 L, Total Bilirubin 1.30 H, AST 94 H, ALT 87 H, Alkaline Phosphatase 320 H, Total Protein 6.4, Albumin 2.3 L, Globulin 4.1, Albumin/Globulin Ratio 0.6 L 07/27/23 06:32: POC Glucose 110 H Micro: Microbiology 07/23/23 09:07 Blood Culture (Wb) - Right Wrist Blood Culture - Final Bacteroides fragilis 07/23/23 09:30 Blood Culture (Wb) - Anticubital Right Blood Culture - Final Escherichia coli 07/23/23 10:19 Urine, Clean Catch Urine Culture - Final Culture exhibits no growth. 07/24/23 02:30 Urine Catheter - Catheter Streptococcus pneumoniae Antigen (M - Final 07/24/23 02:30 Urine Catheter - Pete Legionella Antigen - Final 07/23/23 09:07 Nasal Secretion SARS-CoV-2 Antigen (Rapid) - Final 07/23/23 09:07 Mucosa - Nasopharyngeal Influenza Types A,B Direct FA (ANGELES) - Final Radiography Diagnostic Testing: Radiology Impression KUB X-Ray 07/26/23 21:44 IMPRESSION: Non-obstructive bowel gas pattern. Electronically Signed: Brandan Childress MD at 0:35 EST , Physical Exam Const alert and no apparent distress HEENT head/scalp atraumatic Extremity normal to inspection Assessment & Plan Assessment/Plan (1) Bacteremia: PLAN: BCx on 07/23 one w Bacteroides fragilis and the other with E. coli (martinez sensitive). I'm not sure bacteroides is a true infection as it is anaerobic and more associate with severe GI issues, including ruptured viscera. May possibly due to duodenitis. RUQ US: showed hepatomegaly and diffuse fatty infiltration fo the liver. UA and UCx negative, so urinary is not the source. Unclear source of where any of the bacteremia is originating from. But the cultures are finalized and patient is overall well. Can discharge to complete antibiotics for a total of 10 days with Augmentin. (2) Hyperbilirubinemia: PLAN: Unclear significance. Improving. Trending down overall. RUQ US: showed hepatomegaly and diffuse fatty infiltration fo the liver. (3) Hypokalemia: PLAN: replace magnesium 2.2 PLAN: Plan type 2 diabetes-blood sugars will be monitored via fingerstick blood sugars, she will remain on her current outpatient medications for diabetes leukopenia-resolved at this time VTE prophylaxis: SQ heparin. DC home. Denies home going needs. DW patient's at bedside.
[2023-07-27 08:44] LABS: Magnesium 2.2 mg/dL (1.6-2.6)
[2023-07-27 08:47] VITALS: BP 135/83; PULSE 58; RESP 16; TEMP 36.6; O2SAT 100
[2023-07-27 08:55] VITALS: O2SAT 96
[2023-07-27] MEDS: Loratadine 10 MG Tablet PO (09:24)
[2023-07-27] MEDS: Citalopram 40 MG TABLET PO (09:25)
[2023-07-27] MEDS: Montelukast 10 MG Tablet PO (09:25)
[2023-07-27] MEDS: Pantoprazole Sodium 40 MG Tablet PO (09:25)
[2023-07-27] MEDS: Potassium Chloride Oral Tablet 20 MEQ 60 MEQ PO (09:29)
--- NOTE | 2023-07-27 10:21 | PCM.DC.SUM ---
Providers Date of Admission: 07/23/23 Primary Care Physician: Dr. Lori Santana, DO Reason For Visit: FEVER, SUSPECTED SEPSIS Diagnosis Discharge Diagnosis (1) Bacteremia: Status: Acute Code(s): R78.81 - Bacteremia Plan: BCx on 07/23 one w Bacteroides fragilis and the other with E. coli (martinez sensitive). I'm not sure bacteroides is a true infection as it is anaerobic and more associate with severe GI issues, including ruptured viscera. May possibly due to duodenitis. RUQ US: showed hepatomegaly and diffuse fatty infiltration fo the liver. UA and UCx negative, so urinary is not the source. Unclear source of where any of the bacteremia is originating from. But the cultures are finalized and patient is overall well. Can discharge to complete antibiotics for a total of 10 days with Augmentin. (2) Hyperbilirubinemia: Status: Acute Code(s): E80.6 - Other disorders of bilirubin metabolism Plan: Unclear significance. Improving. Trending down overall. RUQ US: showed hepatomegaly and diffuse fatty infiltration fo the liver. (3) Hypokalemia: Status: Acute Code(s): E87.6 - Hypokalemia Plan: replace magnesium 2.2 Plan type 2 diabetes-blood sugars will be monitored via fingerstick blood sugars, she will remain on her current outpatient medications for diabetes leukopenia-resolved at this time VTE prophylaxis: SQ heparin. DC home. Denies home going needs. DW patient's at bedside. Medications at Discharge Home Medications citalopram 40 mg tablet (Celexa) 40 mg PO DAILY 03/26/20 metformin 750 mg tablet,extended release 24 hr 750 mg PO DAILY 03/26/20 montelukast 10 mg tablet (Singulair) 10 mg PO DAILY 03/26/20 levocetirizine 5 mg tablet (Xyzal) 5 mg PO DAILY 06/06/21 magnesium oxide 400 mg PO QHS 07/27/22 omega-3 417 mg-dha 120 mg-epa-276 mg-fish oil 600 mg-tumeric capsule 1 cap PO DAILY 12/15/22 baclofen 20 mg tablet 20 mg PO TID #90 tabs 04/01/23 potassium chloride 10 mEq tablet,extended release 10 meq PO QHS #30 tabs 04/01/23 ropinirole 1 mg tablet 1 mg PO .COMPLEX #75 tabs 06/04/23 glimepiride 2 mg tablet (Amaryl) 4 mg PO DAILY 07/19/23 acetaminophen 500 mg capsule 1,500 mg PO Q6H PRN pain 07/26/23 naproxen sodium 220 mg capsule (Aleve) 440 mg PO BID PAIN 07/26/23 amoxicillin 875 mg-potassium clavulanate 125 mg tablet 1 tab PO Q12H #14 tabs 07/27/23 pantoprazole 40 mg tablet,delayed release 40 mg PO DAILY #30 tabs 07/27/23 Hospital Course Summary of Care Provided Minutes Spent on Discharge: 40 Hospital Course: Patient presents with nausea vomiting fever and chills. Concern for initially UTI but urinalysis was unremarkable. Blood cultures came back showing E. coli as well as Bacteroides. Bacteroides rather unusual organism but the blood culture drawn the same day showing 2 different organisms. So presumably that the E. coli is the more likely culprit given it being more common. In either case, the antibiotics are sensitive to Augmentin and patient will be discharged with Augmentin pleated 10-day course of antibiotics. Primary source of the bacteremia has not been identified the patient did noted to have some duodenitis though this is uncommon source of bacteremia and so I think we have been able to identify. Patient did not have a urinary tract infection and urinalysis unremarkable and urine culture was negative. With the duodenitis, recommend the patient take pantoprazole and follow-up with gastroenterology as outpatient. Weight / BMI Weight Weight: 114.8 kg Body Mass Index (BMI) 40.8 ABG / Lab / Microbiology Data 07/27/23 06:11 07/27/23 06:11 Laboratory: Laboratory Results - last 24 hr 07/26/23 11:13: POC Glucose 102 07/26/23 16:47: POC Glucose 125 H 07/26/23 22:06: POC Glucose 101 07/27/23 04:58: POC Glucose 104 07/27/23 06:11: WBC 11.4 H, RBC 3.31 L, Hgb 8.5 L, Hct 29.3 L, MCV 88.5, MCH 25.7 L, MCHC 29.0 L, RDW Std Deviation 52.5 H, RDW Coeff of Krystin 16.1 H, Plt Count 226, MPV 9.5, Neut % (Auto) Not Reportable, Absolute Neuts (auto) 7.5, Absolute Lymphs (auto) 1.93, Total Counted 100, Neutrophils % (Manual) 62, Band Neutrophils % 4, Lymphocytes % (Manual) 17 L, Monocytes % (Manual) 12 H, Eosinophils % (Manual) 2, Basophils % (Manual) 1, Myelocytes % 2 H, Diff Path Review May foll, Platelet Estimate ADEQUATE, RBC Morphology N CYTIC, Hypochromasia 2+, Sodium 139, Potassium 3.1 L, Chloride 107, Carbon Dioxide 27.0, Anion Gap 5, BUN 12, Creatinine 0.68, Estim Creat Clear Calc 80.30, Est GFR (MDRD) Af Amer 113, Est GFR (MDRD) Non-Af 94, BUN/Creatinine Ratio 17.8, Glucose 129 H, Calcium 8.2 L, Magnesium 2.2, Total Bilirubin 1.30 H, AST 94 H, ALT 87 H, Alkaline Phosphatase 320 H, Total Protein 6.4, Albumin 2.3 L, Globulin 4.1, Albumin/Globulin Ratio 0.6 L 07/27/23 06:32: POC Glucose 110 H Microbiology: Microbiology 07/23/23 09:07 Blood Culture (Wb) - Right Wrist Blood Culture - Final Bacteroides fragilis 07/23/23 09:30 Blood Culture (Wb) - Anticubital Right Blood Culture - Final Escherichia coli 07/23/23 10:19 Urine, Clean Catch Urine Culture - Final Culture exhibits no growth. 07/24/23 02:30 Urine Catheter - Catheter Streptococcus pneumoniae Antigen (M - Final 07/24/23 02:30 Urine Catheter - Pete Legionella Antigen - Final 07/23/23 09:07 Nasal Secretion SARS-CoV-2 Antigen (Rapid) - Final 07/23/23 09:07 Mucosa - Nasopharyngeal Influenza Types A,B Direct FA (ANGELES) - Final Radiography Diagnostic Testing: Radiology Impression KUB X-Ray 07/26/23 21:44 IMPRESSION: Non-obstructive bowel gas pattern. Electronically Signed: Brandan Childress MD at 0:35 EST , D/C Instructions Discharge Diet: No restrictions Meaningful Use Info Meaningful Use Diagnoses (Choose all that apply): None applicable Discharge Plan Admission Admit Date/Time: 07/23/23 14:37 Primary Reason for Your Visit: bacteremia. Attending Provider: Hector Davies Primary Care Provider: Lori Santana Consulting Providers: Yuriy Ahuja Instructions Additional Instructions / Restrictions: You had bacteremia, which is a bacteria in your blood. 2 different organisms grew out, 1 being E. coli and the other being Bacteroides. The Bacteroides is a very unusual in the absence of any catastrophic abdominal injury, which he certainly did not have. E. coli seems more likely. Is unclear the primary source of the bacteria. Your urine looked okay and urine culture was okay but E. coli can be associated with urinary tract infections. He did have some inflammation of your duodenum which could also been a potential source. So I recommend you complete a course of antibiotics with Augmentin for total of 10 days, including the time that you are in the hospital. Would recommend also being on Protonix just cases duodenitis is an ongoing issue. Would recommend that you follow-up with gastroenterology in the coming months just for further evaluation. Discharge Orders/Prescriptions Prescriptions: New amoxicillin-pot clavulanate 875-125 mg tablet 1 tab PO Q12H Qty: 14 0RF pantoprazole 40 mg tablet,delayed release (DR/EC) 40 mg PO DAILY Qty: 30 0RF Continued citalopram [Celexa] 40 mg tablet 40 mg PO DAILY montelukast [Singulair] 10 mg tablet 10 mg PO DAILY glimepiride [Amaryl] 2 mg tablet 4 mg PO DAILY levocetirizine [Xyzal] 5 mg tablet 5 mg PO DAILY magnesium oxide 400 mg magnesium tablet 400 mg PO QHS potassium chloride 10 mEq tablet extended release 10 meq PO QHS Qty: 30 6RF baclofen 20 mg tablet 20 mg PO TID Qty: 90 5RF ropinirole 1 mg tablet 1 mg PO .COMPLEX Qty: 75 6RF Rx Instructions: Take 1/2 tablet orally at noon daily as needed, 1 tablet at 6 PM daily and 1 tablet at 11 PM daily. omega 7-isg-qpo-fish-turmeric 417 mg-120 mg- 276 mg-600 mg capsule 1 cap PO DAILY acetaminophen 500 mg capsule 1,500 mg PO Q6H PRN (Reason: pain) Patient Comments: SPASMOTIC NECK SYNDROME TAKE 1500 MG MAYBE TWICW A DAY naproxen sodium [Aleve] 220 mg capsule 440 mg PO BID Patient Comments: IF 1500MG TYLENOL DOES NOT HELP HER SPASMOTIC NECK ISSUE SHE WILL TAKE 3 ALEVE 660MG IN ADDITION TO THE TYLENOL Held metformin 750 mg tablet extended release 24 hr 750 mg PO DAILY Hold Instructions: Resume on 07/30/23. Referrals / Follow Up: [facility] [Provider Group] - Within 3 Months Lori Santana DO [Primary Care Provider] - Within 2 Weeks Disposition Disposition (needs filled in before D/C Order can be placed): Home, Self Care Charges/Coding Visit Charges Inpatient E&M: 40566 Disch Hosp >30min
[2023-07-27 12:10] LABS: Bedside Glucose 104 mg/dL (74-106)
[2023-07-27] MEDS: Pramipexole Di-HCl 0.25 MG Tablet PO (13:22)
[2023-07-27 14:49] VITALS: BP 128/73; PULSE 64; RESP 16; TEMP 36.9; O2SAT 98
[2023-07-27] MEDS: Acetaminophen/Butalbital/Caffe 1 Tablet 2 TABLET PO (16:59)
[2023-07-28 10:07] LABS: Pathologist Review Reviewed
== END 2023-07-27 16:50 | disposition home or self-care (01) | DRG 872 ==
LOC: ED 12:50 → PCU 15:12
PROVIDERS: Admitting Provider Internal Medicine; Emergency Provider Emergency Medicine; PCP Family Medicine
DX: R78.81 Bacteremia (principal); D70.3 Neutropenia due to infection; E11.9 Type 2 diabetes mellitus without complications; D64.9 Anemia, unspecified; E80.7 Disorder of bilirubin metabolism, unspecified; B96.6 Bacteroides fragilis [B. fragilis] as the cause of diseases classified elsewhere; K75.81 Nonalcoholic steatohepatitis (NASH); K29.80 Duodenitis without bleeding; E86.0 Dehydration; G24.3 Spasmodic torticollis; K57.90 Diverticulosis of intestine, part unspecified, without perforation or abscess without bleeding; E87.6 Hypokalemia; R09.02 Hypoxemia; Z11.52 Encounter for screening for COVID-19; Z79.84 Long term (current) use of oral hypoglycemic drugs; Z79.899 Other long term (current) drug therapy
CPT/HCPCS: 36415; 51702; 71045; 74018; 74178; 76705; 80053; 81001; 82962; 83605; 83735; 85025; 85610; 85730; 87040; 87077; 87086; 87186; 87426; 87449; 87804; 93005; 97161; 97166; 97802; 99285; J7030; Q9967; A4216; J2405

== ENCOUNTER → 2023-08-02 | Outpatient (CLI) | payer OTHER, SELFPAY ==
--- NOTE | 2023-08-02 13:14 | RAD_ITS ---
EXAM: XR CHEST, 2 VIEWS CLINICAL INDICATION: WHEEZING TECHNIQUE: Frontal and lateral views of the chest. COMPARISON: 07/23/2023 FINDINGS: LUNGS AND PLEURAL SPACES: There are interstitial opacities which may represent scar. No pneumothorax. No effusion. HEART: Unremarkable. Cardiac silhouette not enlarged. MEDIASTINUM: Central airways and mediastinal contour are unremarkable. BONES/JOINTS: Unremarkable. No acute fracture. SOFT TISSUES: Unremarkable. RAD/Chest PA and Lateral IMPRESSION: Mild interstitial opacities which may represent scar. There is no focal consolidation. Electronically Signed: Herman Rock MD at 23:26 EST ,
[2023-08-02 15:24] LABS: Absolute Lymphocyte Count 1.77 X10^3/uL (0.83-4.51); Absolute Neutrophil Count 3.6 X10^3/uL (2.0-7.7); Basophil# 0.02 X10^3/uL; Basophil% 0.3 % (0-1); Eosinophil# 0.17 X10^3/uL; Eosinophils% 2.7 % (0-5); Hematocrit 32.3 % (37-47); Hemoglobin 9.2 g/dL (12.0-15.0); Lymphocyte # 1.77 X10^3/ul (0.83-4.51); Lymphocyte % 28.5 % (19-41); Mean Corp Hgb Conc 28.5 g/dL (32-36); Mean Corpuscular Hgb 25.6 pg (27.0-32.0); Mean Platelet Vol. 8.8 fl (6.2-12.0); Monocyte# 0.61 X10^3/uL; Monocyte% 9.8 % (0-10); NRBC Flagged by Analyzer 0 % (0-5); Neutrophil % 58.1 % (47-70); Platelet Count 360 K/mm3 (150-450); RBC Distribution Width SD 52.2 fl (35.1-43.9); Red Blood Count 3.59 M/mm3 (4.2-5.4); White Blood Count 6.2 K/mm3 (4.4-11.0)
[2023-08-02 15:39] LABS: ALB/GLOB Ratio 0.7 RATIO (0.9-2.4); AST(SGOT) 25 U/L (15-37); Alanine Aminotransfer ALT/SGPT 45 U/L (13-56); Alkaline Phosphatase 183 U/L (45-117); Anion Gap 4 (5-15); BUN 9 mg/dL (7-18); BUN/Creat Ratio 13.5 RATIO (10-20); Calcium,Total 8.8 mg/dL (8.5-10.1); Chloride 106 mmol/L (98-107); Creatinine, Serum 0.67 mg/dL (0.55-1.02); EST Glomerular Filtration Rate 95 mL/min (>60); Est Glom Filt Rate - Afr Amer 115 mL/min (>60); GGTP 281 U/L (5-55); Globulin 4.2 g/dL (2.2-4.2); Glucose 120 mg/dL (74-106); Potassium 3.9 mmol/L (3.5-5.1); Protein, Total 7.2 g/dL (6.4-8.2); Sodium Level 143 mmol/L (136-145)
== END | disposition home or self-care (01) ==
LOC: MTLAB 13:12
PROVIDERS: PCP Family Medicine; Referring Provider Family Medicine; Visit Provider Family Medicine
DX: R06.2 Wheezing (principal); R09.89 Other specified symptoms and signs involving the circulatory and respiratory systems; R06.00 Dyspnea, unspecified; R74.8 Abnormal levels of other serum enzymes; R60.9 Edema, unspecified; Z51.81 Encounter for therapeutic drug level monitoring
CPT/HCPCS: 36415; 71046; 80053; 82977; 85025

== ENCOUNTER → 2023-08-09 | Outpatient (CLI) | payer OTHER, SELFPAY ==
--- NOTE | 2023-08-09 16:36 | MRI_ITS ---
STUDY: MRI LEFT SHOULDER REASON FOR EXAM: Female, 62 years old. Impingement, limited range of motion. TECHNIQUE: Standardized fat and water weighted pulse sequences were obtained in all 3 orthogonal planes. COMPARISON: None. FINDINGS: There is minimal supraspinatus tendinosis without a full-thickness tear. Normal infraspinatus tendon. Normal subscapularis tendon. Normal teres minor tendon. Normal supraspinatus muscle. Normal infraspinatus muscle. Normal subscapularis muscle. Normal teres minor muscle. Normal glenohumeral articulation. Normal humeral head and visualized proximal humerus. Normal biceps labral complex. Normal intracapsular long biceps tendon. Normal labrum. Normal capsulo-ligamentous complex. Normal rotator interval. There is hypertrophic acromioclavicular arthrosis, with inferior osteophyte formation, with mild effacement of the supraspinatus myotendinous junction (coronal PD series 6 images 6-8). There is a Type II morphology (curved), with a neutral orientation. There is no subacromial-subdeltoid bursal fluid. Normal visualized coracohumeral and coracoacromial ligaments. Normal quadrilateral space. Normal axillary space. Normal deltoid muscle. Normal trapezius muscle. MRI/Upper Ext Joint Only(Routine) IMPRESSION: Minimal supraspinatus tendinosis without a full-thickness rotator cuff tear. Hypertrophic acromioclavicular arthrosis, with inferior osteophyte formation, with mild effacement of the supraspinatus myotendinous junction. Electronically Signed: Larry Ruiz MD at 12:10 [facility] ,
== END | disposition home or self-care (01) ==
LOC: MRI 16:23
PROVIDERS: PCP Family Medicine; Referring Provider Physician Assistant Surgical; Visit Provider Physician Assistant Surgical
DX: M75.42 Impingement syndrome of left shoulder (principal); M25.512 Pain in left shoulder
CPT/HCPCS: 73221

== ENCOUNTER → 2023-10-22 | Outpatient (CLI) | payer OTHER, SELFPAY ==
[2023-10-22 13:39] LABS: Microalbumin,Random Urine 13.2 mg/L (NO RANGE EST.); Microalbumin:Creatinine Ratio 5.4 mg/g CRE (<30 mg/g CRE)
[2023-10-22 13:49] LABS: Vitamin D,25 Hydroxy 32.1 ng/mL
[2023-10-22 13:56] LABS: ALB/GLOB Ratio 0.9 RATIO (0.9-2.4); AST(SGOT) 20 U/L (15-37); Alanine Aminotransfer ALT/SGPT 27 U/L (13-56); Albumin, Serum 3.5 g/dL (3.2-5.0); Alkaline Phosphatase 77 U/L (45-117); Anion Gap 7 (5-15); BUN 22 mg/dL (7-18); BUN/Creat Ratio 21.4 RATIO (10-20); Calcium,Total 9.3 mg/dL (8.5-10.1); Chloride 108 mmol/L (98-107); Cholesterol 203 mg/dL (200); Creatinine, Serum 1.03 mg/dL (0.55-1.02); EST Glomerular Filtration Rate 58 mL/min (>60); Est Glom Filt Rate - Afr Amer 70 mL/min (>60); Globulin 3.7 g/dL (2.2-4.2); Glucose 145 mg/dL (74-106); High Density Lipoprotein 72 mg/dL; Protein, Total 7.2 g/dL (6.4-8.2); Sodium Level 140 mmol/L (136-145); Thyroid Stim Hormone (TSH) 0.99 uIU/mL (0.358-3.74); Triglycerides 101 mg/dL; Very Low Density Lipoprotein 20 mg/dL (5-40)
== END | disposition home or self-care (01) ==
PROVIDERS: PCP Family Medicine; Referring Provider Nurse Practitioner Family; Visit Provider Nurse Practitioner Family
DX: R74.8 Abnormal levels of other serum enzymes (principal); E11.9 Type 2 diabetes mellitus without complications; Z51.81 Encounter for therapeutic drug level monitoring
CPT/HCPCS: 36415; 80053; 80061; 82043; 82306; 82570; 84443

== ENCOUNTER → 2023-12-21 | Outpatient (CLI) | payer OTHER, SELFPAY ==
--- NOTE | 2023-12-21 13:48 | BI_ITS ---
MAMMOGRAPHY - BILATERAL SCREENING REASON FOR EXAM: Female, 63 years old. Routine annual screening examination. PERTINENT HISTORY: Sister with breast cancer. TECHNIQUE: Digital bilateral breast wendy (3D mammographic acquisition) in the CC and MLO projections. 2-D mediolateral oblique (MLO) and craniocaudad (CC) views of both breasts were obtained. CAD: Full Field Digital Mammography with Computer Added Detection was performed. COMPARISON: Comparison is made with prior study January 31, 2020. FINDINGS: Breast Composition: There are scattered areas of fibroglandular density. There are no dominant masses or suspicious calcifications. Stable benign-appearing right axillary lymph nodes. No other significant abnormalities are identified. There has been no significant change since the prior study. BI/SCRN MAMM (CAD)W/WENDY BILAT IMPRESSION: Stable bilateral screening mammogram. Yearly follow-up mammogram recommended. (A) ASSESSMENT CATEGORY: BIRADS Category 2: Benign. A letter regarding these results will be sent to the patient by the facility within 30 days. Approximately 10% of breast cancers are not detected by mammography. A normal mammogram should not delay biopsy of a clinically suspicious abnormality. [id number] Electronically Signed: Brad Fonseca MD at 14:51 EDT ,
== END | disposition home or self-care (01) ==
LOC: OPBI 13:46
PROVIDERS: PCP Family Medicine; Referring Provider Family Medicine; Visit Provider Family Medicine
DX: Z12.31 Encounter for screening mammogram for malignant neoplasm of breast (principal); Z80.3 Family history of malignant neoplasm of breast
CPT/HCPCS: 77063; 77067

== ENCOUNTER → 2024-02-03 | Outpatient (CLI) | payer OTHER, SELFPAY ==
[2024-02-03 18:09] LABS: Vitamin B12 > 2000 pg/mL (211-911)
== END | disposition home or self-care (01) ==
LOC: MTLAB 14:31
PROVIDERS: PCP Family Medicine; Referring Provider Psychiatry & Neurology Neurology; Visit Provider Psychiatry & Neurology Neurology
DX: G62.9 Polyneuropathy, unspecified (principal)
CPT/HCPCS: 36415; 82607

== ENCOUNTER 2024-09-17 12:36 | Emergency (ER) | payer OTHER, SELFPAY ==
[2024-09-17 12:36] VITALS: BP 119/81; PULSE 60; RESP 16; TEMP 36.5; O2SAT 97; BMI 42.5
[2024-09-17] MEDS: HYDROcodone Bitartrate/Apap 5/325 Tablet PO (14:07)
[2024-09-17] MEDS: Lidocaine 5% Patch 1 PATCH TOPICAL (14:07)
--- NOTE | 2024-09-17 14:23 | ED.VIS.BACK ---
HPI History of Present Illness Chief Complaint: Back Informant: patient Narrative Narrative: Patient is a 64-year-old female with history of diabetes mellitus, neuropathy, restless leg syndrome, tardive dyskinesia and CKD presenting with worsening right lower back pain. Patient states 3 days ago she was moving some boxes and that evening she started to have some low back pain. The pain is progressed over the past 3 days. She states she has pain in her right lower back that radiates down her buttocks and down to her lateral thigh. She intermittently gets tingling sensation in from her right lateral knee to her mid calf. She denies any weakness of the legs. Denies any saddle anesthesia. Denies any fever or chills. Normally takes baclofen for dystonia as well as meloxicam. Is also been taking ibuprofen 800 mg and Tylenol with no relief. She does get some relief with heat. She states it is worse if she stands up straight, puts weight on her right leg or when she lays on her side. She does get some relief laying on her back but states that she is a side sleeper so it makes it hard for her to sleep. She never any problems with sciatica before. No rash reported. No other complaints or concerns at this time. [facility] Medical History Steatohepatitis Osteoarthritis of right knee Right knee pain Vitamin B12 nutritional deficiency Cervical dystonia BMI over 35 Seasonal allergies Hives Spasmodic torticollis Diabetes Home Medications ?Medication ?Instructions ?Recorded ?Last Taken ?Type citalopram 40 mg tablet (Celexa) 40 mg PO DAILY mental health 03/26/20 Unknown History montelukast 10 mg tablet 10 mg PO DAILY allergies 03/26/20 Unknown History (Singulair) levocetirizine 5 mg tablet (Xyzal) 5 mg PO DAILY allergies 06/06/21 Unknown History magnesium oxide 400 mg PO QHS supplement 07/27/22 Unknown History omega-3 417 mg-dha 120 mg-epa-276 1 cap PO DAILY supplement 12/15/22 Unknown History mg-fish oil 600 mg-turmeric capsule acetaminophen 500 mg capsule 1,500 mg PO Q6H PRN pain 07/26/23 Unknown History diazepam 5 mg tablet 5 mg PO DAILY PRN 10/04/23 Unknown History meloxicam 15 mg tablet 15 mg PO DAILY 10/21/23 Unknown History metformin 750 mg tablet,extended 750 mg PO BID #60 tabs 03/28/24 Unknown Rx release 24 hr baclofen 20 mg tablet 20 mg PO TID muscle relaxer #90 06/06/24 Unknown Rx tabs hydroxyzine pamoate 50 mg capsule 50 mg PO BID PRN itching/anxiety 06/06/24 Unknown Rx #60 caps potassium chloride 10 mEq 10 meq PO QHS supplement #30 tabs 06/06/24 Unknown Rx tablet,extended release ropinirole 1 mg tablet 1 mg PO .COMPLEX restless legs 06/06/24 Unknown Rx #120 tabs glimepiride 2 mg tablet (Amaryl) 4 mg PO DAILY diabetes 07/20/24 Unknown History pantoprazole 40 mg tablet,delayed 40 mg PO QDAY 07/20/24 Unknown History release hydrocodone-acetaminophen 5-325mg 1 tab PO Q6H PRN PRN Pain 3 days 09/17/24 Unknown Rx 5mg-325mg #12 TABLETS ibuprofen 600 mg tablet 600 mg PO Q6H PRN PRN pain #20 09/17/24 Unknown Rx TABLETS lidocaine 4 % topical patch 1 patch topical DAILY PRN pain #5 09/17/24 Unknown Rx (Salonpas (lidocaine)) ea Allergy/AdvReac Type Severity Reaction Status Date / Time cat dander Allergy Hives Verified 09/17/24 12:37 dog dander Allergy Hives Verified 09/17/24 12:37 Environmental Allergies: Allergy Hives Verified 09/17/24 12:37 Uncoded (dust) latex AdvReac Intermediate Itching Verified 09/17/24 12:37 ethinyl estradiol (From AdvReac hives Verified 09/17/24 12:37 Seasonale (91)) levonorgestrel (From AdvReac hives Verified 09/17/24 12:37 Seasonale (91)) Family History Unknown No problems noted. Father Diabetes Respiratory disease Mother Diabetes Sister Diabetes Brother Diabetes Surgical History Hx of cholecystectomy History of right oophorectomy H/O ovarian cystectomy History of delivery Social History household members: spouse Smoking Status: Never smoker second hand exposure: No alcohol intake: current details: social substance use type: does not use caffeine: Yes Type: coffee Number of servings: 3 what type of physical activity do you participate in: none neal/scientologist: Yarsanism seatbelt use: always do you feel safe at home: Yes additional social history: Amado- HR ROS ROS ED Constitutional Constitutional ED: Denies chills or fever(s) Respiratory/Chest Respiratory/Chest: Denies dyspnea Gastrointestinal Gastrointestinal: Denies diarrhea, nausea or vomiting Musculoskeletal Musculoskeletal: Reports back pain; Denies arthralgias or myalgias Integumentary Denies rash Neurologic Neurologic: Denies paresthesias or weakness Hematologic/Lymphatic Hematologic/Lymphatic: Denies easy bleeding or easy bruising EXAM Physical Exam Const Vital Signs: 09/17/24 12:36 09/17/24 15:46 Temperature 97.7 F L 98.5 F Temperature Source Oral Pulse Rate 60 79 Respiratory Rate 16 18 Blood Pressure 119/81 H 137/76 H Blood Pressure Mean 93 96 Pulse Ox 97 97 Oxygen Delivery Method Room Air Positive well nourished and well developed General Appearance ED: well developed and NAD HEENT Reports moist mucous membranes Neck Neck Narrative: Dystonia of the neck and she holds it rotated to the left Resp normal respiratory effort Cardio regular rate and regular rhythm Cardio Narrative: 2+ DP pulses GI normal to inspection, nondistended, normoactive bowel sounds Back/Spine Back/Spine Narrative: No midline tenderness. No deformity of the lumbar spine. Thoracic Spine / Upper Back: Negative for paraspinal muscle tenderness Lumbar Spine / Lower Back: straight leg raise positive right and straight leg raise positive - left Extremity normal to inspection Extremity Narrative: No obvious deformity of the extremities. Neuro oriented x3 Neuro Narrative: 5/5 strength with plantar/dorsal flexion of the feet, flexion extension of the knees and flexion of the hips. Unable to elicit patellar reflex bilaterally. Ambulatory with a steady gait. Sensorium / Orientation: alert Psych mental status grossly normal Skin no rashes or lesions noted MDM MDM MDM Narrative Medical decision making narrative: Patient is evaluated for acute onset of right low back pain rating down her leg. Presentation highly consistent with sciatica. Patient is a diabetic and her last A1c was in the sevens. Do not want a give steroids at this time. She is already on baclofen. Will have her hold her meloxicam and start ibuprofen 600. Given a Lidoderm patch. Will start on [place] for breakthrough pain. Will have her follow-up with her primary care doctor. Counseled that she might require physical therapy or possible advanced imaging. She does not have any trauma or midline tenderness and I do not think she requires an x-ray at this time. She is not have any red flag symptoms for cauda equina syndrome. Given return precautions. Counseled on the risk of constipation as well as confusion and increased risk of fall associate with pain medication. Discussed that if it makes her feel loopy she should take it less frequently or cut her pill in half. Patient and verbalized agreement understands plan. Discharged home in stable condition. Discharge Plan Triage Chief Complaint: Back ED Provider: Tonja Valdez Dx/Rx/DC Orders Clinical Impression: Acute low back pain with right-sided sciatica Instructions: ED Sciatica Prescriptions: New hydrocodone-acetaminophen 5-325 mg tablet 1 tab PO Q6H PRN PRN (Reason: Pain) 3 Days Qty: 12 0RF ibuprofen 600 mg tablet 600 mg PO Q6H PRN PRN (Reason: pain) Qty: 20 0RF lidocaine [Salonpas (lidocaine)] 4 % adhesive patch,medicated 1 patch topical DAILY PRN (Reason: pain) Qty: 5 0RF Rx Instructions: Apply to area of maximum pain. Remove after 12 hours and leave on for 12 hours before applying a second patch. No Action citalopram [Celexa] 40 mg tablet 40 mg PO DAILY montelukast [Singulair] 10 mg tablet 10 mg PO DAILY glimepiride [Amaryl] 2 mg tablet 4 mg PO DAILY levocetirizine [Xyzal] 5 mg tablet 5 mg PO DAILY magnesium oxide 400 mg magnesium tablet 400 mg PO QHS omega 3-zrs-kel-fish-turmeric 417 mg-120 mg- 276 mg-600 mg capsule 1 cap PO DAILY diazepam 5 mg tablet 5 mg PO DAILY PRN meloxicam 15 mg tablet 15 mg PO DAILY pantoprazole 40 mg tablet,delayed release (DR/EC) 40 mg PO QDAY baclofen 20 mg tablet 20 mg PO TID Qty: 90 7RF hydroxyzine pamoate 50 mg capsule 50 mg PO BID PRN (Reason: itching/anxiety) Qty: 60 7RF potassium chloride 10 mEq tablet extended release 10 meq PO QHS Qty: 30 7RF ropinirole 1 mg tablet 1 mg PO .COMPLEX Qty: 120 7RF Rx Instructions: Take 1 tablet orally at noon daily as needed, 1 tablet at 6 PM daily and 2 tablets at 11 PM daily. acetaminophen 500 mg capsule 1,500 mg PO Q6H PRN (Reason: pain) Patient Comments: SPASMOTIC NECK SYNDROME TAKE 1500 MG MAYBE TWICW A DAY metformin 750 mg tablet extended release 24 hr 750 mg PO BID Qty: 60 5RF Primary Care Provider: Lori Santana Referrals: Lori Santana DO [Primary Care Provider] - Activity Restrictions/Additional Instructions: Please follow-up with your primary care doctor. As we discussed if you take ibuprofens please do not take your meloxicam. Use Lidoderm patches and heat to your back. Perform gentle stretching. You have improved given a prescription for stronger pain medication (hydrocodone). Please be aware that pain medication can increase the risk of confusion and also does cause constipation. I recommend taking a stool softener such as MiraLAX while taking the pain medicine. Print Language: Khmer Disposition Disposition: Home, Self Care Discharge Date/Time: 09/17/24 15:56
[2024-09-17 15:46] VITALS: BP 137/76; PULSE 79; RESP 18; TEMP 36.9; O2SAT 97
== END 2024-09-17 15:56 | disposition home or self-care (01) ==
PROVIDERS: Emergency Provider Emergency Medicine; PCP Family Medicine; Visit Provider Emergency Medicine
DX: M54.41 Lumbago with sciatica, right side (principal); E11.22 Type 2 diabetes mellitus with diabetic chronic kidney disease; N18.9 Chronic kidney disease, unspecified; X50.0XXA Overexertion from strenuous movement or load, initial encounter; Z79.84 Long term (current) use of oral hypoglycemic drugs; G25.81 Restless legs syndrome; Z90.49 Acquired absence of other specified parts of digestive tract; Z90.721 Acquired absence of ovaries, unilateral; Z90.6 Acquired absence of other parts of urinary tract
CPT/HCPCS: 99283

== ENCOUNTER → 2024-09-22 | Outpatient (CLI) | payer OTHER, SELFPAY ==
--- NOTE | 2024-09-22 12:41 | RAD_ITS ---
STUDY: X-RAY - LUMBAR SPINE REASON FOR EXAM: Female, 64 years old. Sciatica. TECHNIQUE: 4 view(s) of the lumbar spine were obtained. COMPARISON: None FINDINGS: Normal lumbar lordosis. There is no substantial scoliosis. There is a normal alignment of the vertebrae. Mild diffuse lower thoracic and lumbosacral facet sclerosis. Minimal intervertebral disc space narrowing at L2-3 to L5-S1 with small osteophytes. Cholecystectomy clips. RAD/L/S Spine Min 4 Views IMPRESSION: Mild lower lumbosacral spondylosis. Electronically Signed: Dario Holcomb MD at 17:58 EST ,
== END | disposition home or self-care (01) ==
LOC: MTRAD 12:38
PROVIDERS: PCP Family Medicine; Referring Provider Nurse Practitioner Family; Visit Provider Nurse Practitioner Family
DX: M54.31 Sciatica, right side (principal)
CPT/HCPCS: 72110

== ENCOUNTER → 2025-02-20 | Outpatient (CLI) | payer OTHER, SELFPAY ==
[2025-02-20 17:07] LABS: Microalbumin,Random Urine < 12.0 mg/L (NO RANGE EST.); Microalbumin:Creatinine Ratio UNABLE TO CALCULATE mg/g CRE
[2025-02-20 17:32] LABS: ALB/GLOB Ratio 1.5 RATIO (0.9-2.4); AST(SGOT) 26 U/L (<=31); Alanine Aminotransfer ALT/SGPT 26 U/L (<=34); Albumin, Serum 4.1 g/dL (3.4-4.8); Alkaline Phosphatase 76 U/L (35-104); Anion Gap 12 (5-15); BUN 17 mg/dL (4-19); Calcium,Total 9.7 mg/dL (7.6-11.0); Carbon Dioxide 26.2 mmol/L (21.0-32.0); Chloride 104 mmol/L (98-108); Cholesterol 202 mg/dL (<=200); EST Glomerular Filtration Rate 71 (>60); Globulin 2.7 g/dL (2.2-4.2); Glucose 165 mg/dL (70-99); High Density Lipoprotein 68 mg/dL; Low Density Lipoprotein Calc. 109 mg/dL; Potassium 4.9 mmol/L (3.3-5.1); Protein, Total 6.8 g/dL (5.9-8.4); Sodium Level 142 mmol/L (133-145); Total Bilirubin 0.16 mg/dL (0.00-1.30); Triglycerides 126 mg/dL; Very Low Density Lipoprotein 25 mg/dL (5-40); Vitamin D,25 Hydroxy 47.9 ng/mL (30-100); cholesterol:hdl ratio screen 2.97
== END | disposition home or self-care (01) ==
LOC: MTLAB 11:22
PROVIDERS: PCP Family Medicine; Referring Provider Nurse Practitioner Family; Visit Provider Nurse Practitioner Family
DX: E11.65 Type 2 diabetes mellitus with hyperglycemia (principal)
CPT/HCPCS: 36415; 80053; 80061; 82043; 82306; 82570; 84443

== ENCOUNTER → 2025-05-04 | Outpatient (CLI) | payer OTHER, SELFPAY ==
--- NOTE | 2025-05-04 12:46 | BI_ITS ---
EXAM: SCRN MAMM (CAD)W/WENDY BILAT DATE: 05/04/2025 CLINICAL HISTORY: F, Age 64 y/o , SCREEN TECHNIQUE: SCRN MAMM (CAD)W/WENDY BILAT COMPARISON: Prior exam(s) were compared FINDINGS: TISSUE DENSITY: The breasts are heterogeneously dense, which may obscure small masses. Bilateral Breast Mammographic Findings: No suspicious masses, calcifications or other abnormalities are identified. BI/SCRN MAMM (CAD)W/WENDY BILAT IMPRESSION: No mammographic evidence of malignancy in either breast. OVERALL FINAL ASSESSMENT BI-RADS 1: NEGATIVE. RECOMMENDATION: Routine annual follow-up in 1 Year A letter with findings and recommendations will be mailed to the patient. Reading Location: [id number]
== END | disposition home or self-care (01) ==
LOC: OPBI 12:45
PROVIDERS: PCP Family Medicine; Referring Provider Family Medicine; Visit Provider Family Medicine
DX: Z12.31 Encounter for screening mammogram for malignant neoplasm of breast (principal)
CPT/HCPCS: 77063; 77067

== ENCOUNTER → 2025-07-16 | Outpatient (CLI) | payer OTHER, SELFPAY ==
[2025-07-16 12:48] LABS: Hematocrit 34.6 % (37-47); Hemoglobin 10.5 g/dL (12.0-15.0); Immature Granulocytes Count 0.040 X10^3/uL (0.0-0.0); Mean Corp Hgb Conc 30.3 g/dL (32-36); Mean Corpuscular Volume 88.0 fL (81-99); Mean Platelet Vol. 9.5 fl (6.2-12.0); NRBC Flagged by Analyzer 0 % (0-5); Platelet Count 271 K/mm3 (150-450); RBC Distribution Width CV 14.0 % (11.6-14.6); RBC Distribution Width SD 45.3 fl (35.1-43.9); Red Blood Count 3.93 M/mm3 (4.2-5.4); White Blood Count 10.3 K/mm3 (4.4-11.0)
[2025-07-16 13:25] LABS: AST(SGOT) 25 U/L (<=31); Alanine Aminotransfer ALT/SGPT 37 U/L (<=34); Albumin, Serum 4.2 g/dL (3.4-4.8); Alkaline Phosphatase 77 U/L (35-104); Anion Gap 9 (5-15); BUN 17 mg/dL (4-19); BUN/Creat Ratio 21.9 RATIO (10-20); Calcium,Total 9.6 mg/dL (7.6-11.0); Carbon Dioxide 28.8 mmol/L (21.0-32.0); Chloride 102 mmol/L (98-108); Ferritin 36 ng/mL (22-378); Globulin 2.8 g/dL (2.2-4.2); Glucose 185 mg/dL (70-99); Potassium 4.8 mmol/L (3.3-5.1); Pro- Brain NATRIURETIC PEPTIDE 133 pg/mL (<=900)
[2025-07-16 14:25] LABS: CRP 11.90 mg/L (0.0-3.0); Iron 52 ug/dL (50-170); Magnesium 1.9 mg/dL (1.5-2.2)
== END | disposition home or self-care (01) ==
LOC: BFHLAB 10:04
PROVIDERS: PCP Family Medicine; Visit Provider Family Medicine
DX: E11.9 Type 2 diabetes mellitus without complications (principal); G25.81 Restless legs syndrome; M79.10 Myalgia, unspecified site; M25.50 Pain in unspecified joint; D50.9 Iron deficiency anemia, unspecified
CPT/HCPCS: 36415; 80053; 82728; 83540; 83735; 83880; 85025; 85652; 86140; 86200; 86431